=== PATIENT | female | born 1960 | race Caucasian/White ===

== ENCOUNTER 2016-03-30 21:53 | Inpatient (IN) | payer MEDICARE, MEDICAID ==
[~2016-03-30] VITALS: Ht 152.4 cm; Wt 52.1 kg
[~2016-03-30 21:53] MED LIST: CALC500T49 PO; COLA100C PO; CYMB60CA3 PO; FE T325T PO; HYDR25T PO; LORA10TA2 PO; MONT10TA2 PO; NICO21DI26 EXT; OMEP40CA2 PO; PAXI20TA3 PO; PRIL40CA PO; THIA100T PO
[2016-03-30 22:36] LABS: MEAN CORPUSCULAR VOLUME 99.9 fl (80.0-96.0); WHITE BLOOD COUNT 4.2 K/mm3 (4.0-10.0)
[2016-03-30 22:40] LABS: CONTROL LINE HCG INT CTR LINE PRESENT
[2016-03-30 22:51] LABS: AMPHETAMINES LEVEL URINE NEGATIVE (NEGATIVE); BENZODIAZEPINES URINE NEGATIVE (NEGATIVE); COCAINE METABOLITE URINE NEGATIVE (NEGATIVE); CONTROL LINE INT CTR LINE PRESENT; METHADONE URINE NEGATIVE (NEGATIVE); OPIATES URINE NEGATIVE (NEGATIVE); TRICYCLIC ANTIDEPRESS URINE NEGATIVE (NEGATIVE)
[2016-03-30 22:54] LABS: ALBUMIN 3.2 GM/DL (3.2-5.2); ALBUMIN/GLOBULIN RATIO 0.89 (1.00-1.93); ALKALINE PHOSPHATASE 126 U/L (45-117); ALT/SGPT 26 U/L (12-78); ANION GAP 9 MEQ/L (8-16); AST/SGOT 38 U/L (15-37); BILIRUBIN,DIRECT < 0.1 MG/DL (0.0-0.2); BILIRUBIN,TOTAL 0.3 MG/DL (0.2-1.0); BLOOD UREA NITROGEN 4 MG/DL (7-18); CALCIUM LEVEL 7.9 MG/DL (8.5-10.1); CARBON DIOXIDE LEVEL 30 MEQ/L (21-32); CHLORIDE LEVEL 110 MEQ/L (98-107); CREATININE FOR GFR 0.57 MG/DL (0.55-1.02); GLOMERULAR FILTRATION RATE > 60.0 (>51); GLUCOSE, FASTING 106 MG/DL (70-105); POTASSIUM SERUM 3.9 MEQ/L (3.5-5.1); SODIUM LEVEL 149 MEQ/L (136-145); TOTAL PROTEIN 6.8 GM/DL (6.4-8.2)
[2016-03-30] MEDS ORDERED: NICOTINE 21MG/24HR 1 EA TRANSDERMAL As Ordered ONE (23:02)
[2016-03-31] MEDS ORDERED: OXAZEPAM 15 MG CAP As Ordered ONE ×2 (02:34→11:03)
[2016-03-31] MEDS ORDERED: GI COCKTAIL 50ML BTL(HYOSCYAMINE/MAALOX/LIDOCAINE VISCOUS)(1:3:1) As Ordered ONE (02:34)
[2016-03-31] MEDS ORDERED: hydrOXYzine 25 MG TAB As Ordered ONE (12:34)
[2016-03-31] MEDS ORDERED: SUCR1SS PO (13:00)
[2016-03-31] MEDS ORDERED: VITMTA PO (13:00)
[2016-03-31] MEDS ORDERED: DRIS50002 PO (13:00)
[2016-03-31] MEDS ORDERED: TYLE1TAB5 PO (13:00)
[2016-03-31] MEDS ORDERED: OMEP40CA2 PO (13:00)
[2016-03-31] MEDS ORDERED: HYDR25T PO (13:00)
[2016-03-31] MEDS ORDERED: DULO1CAP3 PO (13:00)
[2016-03-31] MEDS ORDERED: FERR325T PO (13:00)
--- NOTE | 2016-03-31 15:02 | EDDOCDS ---
Physician Documentation [facility] Name: Amee Newman Age: 55 yrs Sex: Female : 1960 Arrival Date: 03/30/2016 Time: 21:53 Bed OBSERVATION Private MD: Disposition: 03/31/16 11:55 Hospitalization ordered by Aki Worthington for Inpatient Admission. Preliminary diagnosis are Suicidal ideations, Alcohol abuse counseling and surveillance, Alcohol abuse, Alcohol abuse with intoxication, uncomplicated. - Bed requested for Admit. - Status is Inpatient Admission. jc4 - Condition is Stable. - Problem is new. - Symptoms are unchanged. Historical: - Allergies: no known allergies; - Home Meds: 1. omeprazole 40 mg oral cpDR 1 cap 2 times per day (Last dose: 03/30/2016 09:00) 2. duloxetine 60 mg Oral cpDR 1 cap once daily (Last dose: 03/30/2016 09:00) 3. hydroxyzine HCl 25 mg Oral tab 1 tab 4 times per day as needed (Last dose: 03/29/2016) 4. Carafate 100 mg/mL Oral susp 10 mL 4 times per day (Last dose: 03/30/2016 19:00) 5. ferrous sulfate 325 mg (65 mg iron) Oral tab 325 mg twice a day (Last dose: Unknown) 6. Vitamin D Oral 50,000 unit monthly (Last dose: 02/2016) - PMHx: Depression; - PSHx: Gastric Bypass; Cholecystectomy; Adenoidectomy; Tonsillectomy; left knee surgery; - Social history: Smoking status: Patient uses tobacco products, current every day smoker. Patient uses alcohol on a daily basis. Patient/guardian denies using street drugs, No barriers to communication noted, The patient speaks fluent Bulgarian, Speaks appropriately for age. - Family history: Not pertinent. - : The pt / caregiver states he / she is not on anticoagulants. Home medication list is obtained from the patient, Note Medications verified by [employer] external history and confirmed by patient. 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 11 in. (149.86 cm); 03/31 02:17 BP 155 / 90; Pulse 89; Resp 20; Pulse Ox 99% ; Pain 9/10; mas 05:07 BP 125 / 78; Pulse 85; Resp 16; Temp 95.8(T); Pulse Ox 96% on R/A; Pain 0/10; slm 11:00 BP 151 / 108; Pulse 108; Resp 20; Temp 99.5(TE); Pulse Ox 98% on R/A; Pain 0/10; jc4 12:23 BP 165 / 94; Pulse 104; Resp 20; Pulse Ox 98% on R/A; jc4 14:58 BP 161 / 98; Pulse 101; Resp 17; Temp 99(TE); Pulse Ox 97% on R/A; pjf 03/30 22:00 Body Mass Index 23.63 (53.07 kg, 149.86 cm) mas MDM: 03/30 22:29 Consult PFS/PSA/Train Engineer ordered. ke 22:29 Consult PFS/PSA/Train Engineer: Patient's case requires discussion with on-call Psychiatrist ordered. 22:29 PSA/PFS to call Nursing Change Control Specialist, to enter patient data on [place] Safe Act if patient ke involuntarily admitted or transferred for SI or HI ordered. 22:29 Confirm accurate psychiatric medication list and times of last dosage ordered. ke 22:29 Detain Pt Until Medically/PFS Cleared ordered. ke 22:30 Acetaminophen Level Ordered. EDMS 22:30 Basic Metabolic Profile Ordered. EDMS 22:30 Complete Blood Count Ordered. EDMS 22:30 Drug Eval Toxicology ED Only Ordered. EDMS 22:30 Ethyl Alcohol (ethanol) Ordered. EDMS 22:30 HCG,Serum Qualitative Ordered. EDMS 22:30 Liver Profile Ordered. EDMS 22:30 Salicylate Level Ordered. EDMS 22:30 Thyroid Stimulating Hormone Ordered. EDMS 22:41 Nicotine Patch 21 mg/24 hr 1 applic Transdermal once ordered. ke 23:03 Acetaminophen Level Reviewed. ke 23:03 Basic Metabolic Profile Reviewed. ke 23:03 Complete Blood Count Reviewed. ke 23:03 Ethyl Alcohol (ethanol) Reviewed. ke 23:03 Liver Profile Reviewed. ke 23:03 Salicylate Level Reviewed. ke 23:03 Drug Eval Toxicology ED Only Reviewed. ke 23:03 HCG,Serum Qualitative Reviewed. ke 23:03 Thyroid Stimulating Hormone Reviewed. ke 23:09 [place] Safe Act reporting: The patient poses a significant risk to self or others, and ke PSA/PFS has notified the Nursing Change Control Specialist and he/she will complete the required gps field data collector. and the care was then provided by Initial Observation Assessment: The working diagnosis being considered, that nessecitates further evaluation and/or treatrment, includes etoh intoxication with suicidal ideation. 03/31 02:27 GI Cocktail - (Alum-Mag Hydroxide-Simeth 30 ml, Lidocaine 10 ml, Hyoscyamine 10 ml) PO mm11 once; Pre-mixed 50mL unit dose ordered. 02:30 Oxazepam 30 mg PO once ordered. mm11 04:26 REGULAR DIET PLASTIC WYATT+DIET ordered. EDMS 08:44 Financial registration complete. gb 09:44 [facility] Payment Agreement was scanned into [employer] and attached to record. gb 10:33 Consult PFS/PSA/Train Engineer complete. rb 11:03 Oxazepam 30 mg PO once ordered. jc4 11:08 REGULAR DIET PLASTIC WYATT+DIET ordered. EDMS 12:34 hydrOXYzine 25 mg PO once ordered. jc4 14:07 Admit to [facility]: ordered. EDMS 14:12 [facility] Legal paperwork was scanned into [employer] and attached to record. ml4 Administered Medications: 03/30 23:08 Drug: Nicotine 1 applic [nicotine 21 mg/24 hr daily transdermal patch (1 patches)] [facility] Route: Transdermal; Site: left upper arm; 03/31 02:37 Drug: GI Cocktail - (Alum-Mag Hydroxide-Simeth Suspension 225 mg-200 mg-25 mg/5 mL 30 slm ml, Lidocaine Liquid 2 % 10 ml, Hyoscyamine Liquid 10 ml) Route: PO; 03:51 Follow up: Response: Nausea is decreased [facility] 02:37 Drug: Oxazepam 30 mg [oxazepam 15 mg capsule (2 caps)] Route: PO; [facility] 03:51 Follow up: Response: Anxiety is improved [facility] 11:07 Drug: Oxazepam 30 mg [oxazepam 15 mg capsule (2 caps)] Route: PO; jc4 12:23 Follow up: BP 165 / 94; Pulse 104 bpm; Resp 20 bpm; Pulse Ox 98% RA jc4 12:39 Drug: hydrOXYzine 25 mg [hydroxyzine HCl 25 mg tablet (1 tabs)] Route: PO; jc4 Signatures: Dispatcher [employer] EDMS Karissa Whitt MD MD ml Gabe, Marine, PSA PSA rb Kristal Uriostegui, Reg Reg gb Kyle Benitez, SERVICE MEMBER SERVICE MEMBER Dede Cook, PSA PSA ml4 Tony Cramer, DO mm11 Cyndie Telles RN RN jc4 Vandana Valerio RN RN ttb Bridget Bailey LPN [facility] The chart was reviewed and I authenticate all verbal orders and agree with the evaluation and treatment provided.Corrections: (The following items were deleted from the chart) :39 03/30 22:21 Home Meds: Omeprazole Oral once daily; b jc4 03/31 09:39 03/30 22:21 Home Meds: "depression meds" daily; [facility] jc4 : 03/31 09:44 [facility] Payment Agreement gb MTDD
--- NOTE | 2016-03-31 15:02 | EDDOCDS ---
Nurse's Notes [facility] Name: Amee Newman Age: 55 yrs Sex: Female : 1960 Arrival Date: 03/30/2016 Time: 21:53 Bed OBSERVATION Private MD: Diagnosis: Suicidal ideations;Alcohol abuse counseling and surveillance;Alcohol abuse;Alcohol abuse with intoxication, uncomplicated Presentation: 03/30 22:00 Presenting complaint: law enforcement states called to residence by boyfriend for SI ttb ideation/attempts using scissors. Mental Health Triage Level: Level 2: The patient displays active suicidal ideations. The patient was brought to the ED for evaluation because of a legal pickup order. Adult Sepsis Screening: The patient does not have new or worsening altered mentation. Patient's respiratory rate is less than 22. Systolic blood pressure is greater than 100. Patient has a qSOFA score of 0- Negative Sepsis Screen. 22:00 Acuity: ASHISH Level 3 ttb 22:00 Mental Health Triage Level: Level 2: The patient displays active suicidal ideations. ttb The patient was brought to the ED for evaluation because of a legal pickup order. Suicide/Homicide risk assessment- The patient admits to and/or has been reported to be having suicidal ideations. The patient reports that he/she has a recent or current history of substance abuse. Status: Patient is not a community service representative or dependent. Transition of care: patient was not received from another setting of care. 22:00 Method Of Arrival: Police Car ttb Triage Assessment: 22:21 Pain: Denies pain. HIV screening NA for this visit Offered previously. Neurological: ttb Level of Consciousness is awake, alert. Cardiovascular: Chest pain is denied. Respiratory: No deficits noted. Airway is patent Respiratory effort is even, unlabored, Denies cough, shortness of breath. GI: Denies nausea, vomiting, pain. Derm: Skin is normal. 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 omeprazole 40 mg oral cpDR 1 cap 2 times per day (Last dose: 03/30/2016 09:00) 2. duloxetine 60 mg Oral cpDR 1 cap once daily (Last dose: 03/30/2016 09:00) 3. hydroxyzine HCl 25 mg Oral tab 1 tab 4 times per day as needed (Last dose: 03/29/2016) 4. Carafate 100 mg/mL Oral susp 10 mL 4 times per day (Last dose: 03/30/2016 19:00) 5. ferrous sulfate 325 mg (65 mg iron) Oral tab 325 mg twice a day (Last dose: Unknown) 6. Vitamin D Oral 50,000 unit monthly (Last dose: 02/2016) - PMHx: Depression; - PSHx: Gastric Bypass; Cholecystectomy; Adenoidectomy; Tonsillectomy; left knee surgery; - Social history: Smoking status: Patient uses tobacco products, current every day smoker. Patient uses alcohol on a daily basis. Patient/guardian denies using street drugs, No barriers to communication noted, The patient speaks fluent Ukrainian, Speaks appropriately for age. - Family history: Not pertinent. - : The pt / caregiver states he / she is not on anticoagulants. Home medication list is obtained from the patient, Note Medications verified by [employer] external history and confirmed by patient. 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 Screenin:40 Screening information is obtained from the patient. Fall risk: At risk due to apparent jc4 chemical impairment, The following interventions are performed due to a positive Fall Risk Screen: Fall Risk is added to Special Handling on the patient Summary Screen. A Fall Risk Bracelet was applied to the patient. Side Rails are placed in the up position. A Call Small is given with instruction to call for help when getting out of bed. Assistance ADL's: requires no assistance with activities of daily living. Abuse/DV Screen: The patient / caregiver reports he/she is: not in a situation that causes fear, pain or injury. Nutritional screening: No deficits noted. Advance Directives: Currently, there is a health care proxy, Agustina Vazquez, daughter. There is no active DNR order. There is no living will. There is no Power of Drying Can Worker. home support is adequate. Assessment: 03/30 22:12 General: Appears in no apparent distress, Behavior is cooperative, Smells of alcohol. slm Neurological: Level of Consciousness is awake, alert, obeys commands. Respiratory: Airway is patent Respiratory effort is even, unlabored. Derm: Skin is pink, warm & dry. 23:10 General: Appears in no apparent distress, comfortable, Behavior is cooperative. slm General: pt ambulated to bathroom with steady gait security observing . Pain: Denies pain. Respiratory: Airway is patent Respiratory pattern is regular. 03/31 00:12 General: Appears in no apparent distress, comfortable, to be sleeping. Behavior is slm quiet. General: pr asleep on stretcher security observing . Respiratory: Airway is patent Respiratory effort is even, unlabored. 01:22 General: Appears in no apparent distress, comfortable, to be sleeping. Behavior is slm quiet. General: security observing . Respiratory: Airway is patent Respiratory effort is even, unlabored. Derm: Skin is pink, warm & dry. 02:37 General: Appears in no apparent distress, Behavior is anxious, cooperative, crying. slm General: pt crying appears anxious upset at this time meds given will cont to monitor . Neurological: Level of Consciousness is awake, alert, obeys commands. Respiratory: Airway is patent Respiratory effort is even, unlabored. 03:50 General: Appears in no apparent distress, comfortable, to be sleeping. Behavior is slm quiet. General: pt asleep at this time no distress noted will cont to monitor security observing . Respiratory: Airway is patent Respiratory effort is even, unlabored. Derm: Skin is pink, warm & dry. 04:40 Reassessment: Patient appears in no apparent distress at this time. Patient states slm symptoms have improved. General: Appears in no apparent distress, comfortable, to be sleeping. Behavior is quiet. General: pt asleep on stretcher security observing . Respiratory: Airway is patent Respiratory effort is even, unlabored, Respiratory pattern is regular. Derm: Skin is pink, warm & dry. 05:58 General: Appears in no apparent distress, comfortable, to be sleeping. Behavior is slm quiet. General: pt resting on stretcher security observing . Respiratory: Airway is patent Respiratory effort is even, unlabored, Respiratory pattern is regular. Derm: Skin is pink, warm & dry. 06:47 General: Appears in no apparent distress, comfortable, Behavior is cooperative, quiet. slm General: pt resting on stretcher denies needs security observing . Pain: Denies pain. Neurological: Level of Consciousness is alert, obeys commands. Respiratory: Airway is patent Respiratory effort is even, unlabored. Derm: Skin is pink, warm & dry. 07:47 General: Appears in no apparent distress, Behavior is anxious, cooperative. pml Neurological: Level of Consciousness is awake, alert, Oriented to person, place, time. Cardiovascular: Capillary refill < 3 seconds. Respiratory: Airway is patent Respiratory effort is even, unlabored. Derm: Skin is pink, warm & dry. 09:20 General: Orin Bernal, PSA in to speak with patient at this time. jc4 09:41 General: Appears in no apparent distress, comfortable, Behavior is cooperative. jc4 General: Yolande antonio given per patient request. Pt remains under security observation at this time. Neurological: Level of Consciousness is awake, alert, Oriented to person, place, time. Respiratory: Airway is patent Respiratory effort is even, unlabored, Respiratory pattern is regular, symmetrical. Derm: Skin is pink, warm & dry. 10:50 General: Appears Pt sitting up on stretcher, tearful. Requesting phone to call home. Pt jc4 asking, "am I going to stay? I don't want to stay". Pt's hands noted to be tremulous. VS obtained. Dr. Dhaliwal updated on patient condition and orders received. Pt remains under security observation at this time. Additional yolande antonio given per request. 11:34 General: Pt sitting on stretcher. Appears calm. Speaking with family members. jc4 12:23 General: Pt sitting up on stretcher. Speaking with family members at bedside. States jc4 vomited x 1 approximately 30 minutes ago, "I drank my yolande antonio too fast". Hands remain mildly tremulous. Denies any nausea currently. Security observation continuing. 13:09 General: Lunch tray given. Pt denies any complaint at this time. Security observation jc4 continuing. 14:40 General: Pt lying on stretcher. Appears in no distress at this time. Security continues jc4 to observe patient. 14:57 General: Appears in no apparent distress, Behavior is cooperative. Neurological: Level jc4 of Consciousness is awake, alert, Oriented to person, place, time. Respiratory: Airway is patent Respiratory effort is even, unlabored, Respiratory pattern is regular, symmetrical. Derm: Skin is pink, warm & dry. Mental Health Eval: 03/30 22:00 Referral Information: Evaluation referral is generated by a police agency: Dianna whyte on .. The patient was referred for evaluation because Pt drinking tonight, possible drug use as well, expressed SI to her S.O. who called 911. Pt reportedly had scissors taken away by S.O. as well. Pt has prior psych hx with 2 prior psych admissions to [facility].. 03/31 10:37 Mental health consult is initiated at 09:05. Status: The patient is not a rb community service representative or dependent. [facility] Behavioral Health: The patient is not an established patient of [facility] Behavioral Health. Referral Information: The patient was referred for evaluation because Pt presented to ED +ETOH (CESAR .409), stating +SI. Pt is now sober and continues to state SI, teary, reported increased anxiety, and depressed. Pt stated "Told him (BF) I wanted to kill myself". "Very Depressed". Pt reported stressors as; Youngest Dgt living in [place], Son just moved to [place], on 10/03 quit her job ("and loved it, was really stressful, wished I hadn't"), worked on the [employer] floor \\[facility]. Additional stressors are; CPS removed 2 children from the home of Another Dgt living in [place]. Pt's mother has custody and Pt is not allowed to be around them because" I'm a drunk". "I just feel like a loser". "I also went through a bad divorce 13 years ago. I never got over". Pt reported had to have all her teeth pulled a year ago. Had trouble with insurance so was not able to get them replaced. Pt stated Embarrassed to go anywhere or talk to anyone. . Subjective: The patients chief complaint is Depressed, increased anxiety, +SI no plan. . Delusions are denied. Patient's mood is anxious, dysphoric, hopeless, Hallucinations are denied. Mental Health history: alcohol abuse, anxiety, depression, suicide ideation twice; 6 yrs ago and 13 years ago. Mental Health Admissions: [facility], 6 years ago for +SI, and , 13 yrs ago for +SI. Current Outpatient Mental Health Services: Completed Rehab \\[facility], 5yrs ago. Attended and [facility] ([place]) in the past. Pt reported was sober for 2 years. . Current living environment is The patient currently lives with his / her significant other, of 13 years.. Patient presents to Emergency Department with the following symptoms within the past 2 weeks: alcohol abuse, anxiety, depressed mood, feelings of helplessness/hopelessness, poor impulse control, suicidal ideation with no plan. Substance abuse: Patient uses beer, of LOCOS 4 LOCOS and Beer + daily. Mental status exam: Patients appearance is disheveled Patient's behavior is cooperative, crying. Speech is normal. Affect is flat. Mood is anxious. dysphoric. Hallucinations are denied. Appetite is poor. Memory is good. Energy level is lethargic. Content of thought is depressive. "I just don't want to be here". Thought process is characterized by flight of ideas. Cognitive level is oriented to person, place, time and situation Patient's insight is poor. Judgement is poor. Rapport with interviewer is good. Suicidal Ideation is present with no specific plan. Homicidal ideation is not present. Disposition: Medically cleared for disposition by Karissa Whitt MD. 11:34 Disposition: Psychiatric Consult is performed by phone with Dr Aki Worthington. [facility] rb Admission Criteria: The patient is experiencing suicidal ideation. The patient displays symptoms of severe psychiatric disorder resulting in disordered behavior and significant interference with his / her ability to maintain self care. Severe Anxiety. The patient requires continuous observation and/or control to protect self, others or property. The patient's care requires a multi-modal treatment plan under close supervision and coordination due to the complexity and severity of the patient's symptoms. Legal Status: Patient's legal status will be Emergency admission: 39. [place] Safe Act: [place] Safe Act is applicable to this patient. The patient poses a risk to self or other and the Nursing Apartment Maintenance Manager has been notified. He/She will enter the patient's data. Pt states preferred pharmacy is: [facility] in [place]. 14:09 DSM-V Differential Diagnosis: Unspecified Depressive Disorder (F32.9). Insurance rb Pre-Certification: Not Required. Awaiting: transfer to [facility]. Vital Signs: 03/30 22:00 BP 132 / 89; Pulse 104; Resp 20; Temp 96.2(T); Pulse Ox 96% ; Weight 53.07 kg; Height 4 mas ft. 11 in. (149.86 cm); 03/31 02:17 BP 155 / 90; Pulse 89; Resp 20; Pulse Ox 99% ; Pain 9/10; mas 05:07 BP 125 / 78; Pulse 85; Resp 16; Temp 95.8(T); Pulse Ox 96% on R/A; Pain 0/10; slm 11:00 BP 151 / 108; Pulse 108; Resp 20; Temp 99.5(TE); Pulse Ox 98% on R/A; Pain 0/10; jc4 12:23 BP 165 / 94; Pulse 104; Resp 20; Pulse Ox 98% on R/A; jc4 14:58 BP 161 / 98; Pulse 101; Resp 17; Temp 99(TE); Pulse Ox 97% on R/A; pjf 02 22:00 Body Mass Index 23.63 (53.07 kg, 149.86 cm) [facility] Vitals: 03/30 22:21 Log In time N/A- police car arrival. ttb ED Course: 21:55 Patient visited by Darcy Franco. gjb 21:55 Patient moved to Waiting gjb 22:00 Patient visited by Ji Todd. mas 22:00 Patient moved to [address] 22:04 Pt greeted and oriented to ED. Patient advised of names of staff involved in care, [facility] location of call small, wait times and NPO status. Accompanied by Law Enforcement, DULCE on , Patient has correct armband on for positive identification. Placed in psych safe attire. Bed in low position. Call light in reach. Side rails up X 1. Security observing. Property removed, inventory done, secured in belongings bag- Placed in locker 3. Door closed. Noise minimized. Moved to private room. Verbal reassurance given. Warm blanket given. Pillow given. Psych Safety Check: Location: Psych Room. Visual Assessment: cooperative \\T\\ this time. 22:12 Bridget Bailey LPN is Primary Nurse. slm 22:12 Labs drawn. (by ED staff). Sent per order to lab. Urine collected. Urine specimen sent sl to lab. 22:13 Patient visited by Bridget Bailey LPN. slm 22:15 Patient visited by Ji Todd. [facility] 22:20 Triage Initiated ttb 22:29 [facility] Benitez FNP [facility]. ke 22:29 Patient visited by Kyle Benitez FNP. ke 22:29 Patient visited by Kyle Benitez FNP. ke 22:31 Patient visited by Ji Todd. mas 22:45 Patient visited by Ji Todd. mas 23:02 Patient visited by Ji Todd. mas 23:11 Patient moved to OBSERVATION ke 23:15 Patient visited by Ji Todd. mas 23:30 Patient visited by Ji Todd. mas 23:45 Patient visited by Ji Todd. mas 23:47 Tony Cramer DO is Attending Physician. mm11 03/31 00:00 Patient visited by Ji Todd. mas 00:15 Patient visited by Ji Todd. mas 00:30 Patient visited by Ji Todd. mas 00:46 Patient visited by Ji Todd. mas 01:00 Patient visited by Ji Todd. mas 01:15 Patient visited by Ji Todd. mas 01:22 Patient visited by Bridget Bailey LPN. slm 01:30 Patient visited by Ji Todd. mas 01:46 Patient visited by Ji Todd. mas 02:00 Patient visited by Ji Todd. mas 02:16 Patient visited by Ji Todd. mas 02:30 Patient visited by Ji Todd. mas 02:38 Patient visited by Bridget Bailey LPN. slm 02:45 Patient visited by Ji Todd. mas 03:00 Patient visited by Ji Todd. mas 03:30 Patient visited by Ji Todd. mas 03:45 Patient visited by Ji Todd. mas 04:01 Patient visited by Ji Todd. mas 04:15 Patient visited by Ji Todd. mas 04:31 Patient visited by Ji Todd. mas 04:45 Patient visited by Ji Todd. mas 05:00 Patient visited by Ji Todd. mas 05:09 Patient visited by Bridget Bailey LPN. slm 05:09 The patient / caregiver is instructed regarding the plan of care and ED course. slm 05:09 No IV's were initiated during this patient's visit. No procedures done that require slm assistance. 05:15 Patient visited by Ji Todd. mas 05:30 Patient visited by Ji Todd. mas 05:45 Patient visited by Ji Todd. mas 06:00 Patient visited by Ji Todd. mas 06:15 Patient visited by Ji Todd. mas 06:30 Patient visited by Ji Todd. mas 06:45 Patient visited by Ji Todd. mas 06:48 Patient visited by Bridget Bailey LPN. slm 06:57 Attending Physician role handed off by Tony Cramer DO ml 06:57 Karissa Whitt MD is Attending Physician. ml 07:00 Patient visited by Ji Todd. mas 07:06 Patient visited by John Feliciano Security Aide. pjf 07:29 Patient visited by John Feliciano Security Aide. pjf 07:45 Patient visited by John Feliciano Security Aide. pjf 08:03 Patient visited by John Feliciano Security Aide. pjf 08:19 Patient visited by John Feliciano Security Aide. pjf 08:27 Patient visited by John Feliciano Security Aide. pjf 08:28 Patient visited by Windy Vega,MELISA. pml 08:54 Patient visited by John Feliciano Security Aide. pjf 09:01 Cyndie Telles, MELISA is Primary Nurse. jc4 09:02 Patient visited by John Feliciano Security Aide. pjf 09:34 Patient visited by John Feliciano Security Aide. pjf 09:37 Patient name changed from Amee\\S\\\\S\\Hirschy\\S\\ to Amee\\S\\ \\S\\Hirschy. EDMS 09:44 [facility] Payment Agreement was scanned into [employer] and attached to record. gb 09:45 Psych Safety Check: Location: Psych Room. Visual Assessment: Cooperative. pjf 10:01 Patient visited by John Feliciano Security Aide. pjf 10:15 Patient visited by John Feliciano Security Aide. pjf 10:43 Patient visited by John Feliciano Security Aide. pjf 10:57 Patient visited by John Feliciano Security Aide. pjf 11:15 Psych Safety Check: Location: Psych Room. Visual Assessment: Cooperative. pjf 11:30 Psych Safety Check: Location: Psych Room. Visual Assessment: Cooperative. pjf 11:45 Patient visited by John Feliciano Security Aide. pjf 11:55 Aki Worthington is Hospitalizing Provider. ml 11:58 Patient visited by John Feliciano Security Aide. pjf 12:18 Patient visited by John Feliciano Security Aide. pjf 12:34 Patient visited by John Feliciano Security Aide. pjf 12:45 Patient visited by John Feliciano Security Aide. pjf 14:12 E Legal paperwork was scanned into [employer] and attached to record. ml4 Administered Medications: 03/30 23:08 Drug: Nicotine 1 applic [nicotine 21 mg/24 hr daily transdermal patch (1 patches)] sl Route: Transdermal; Site: left upper arm; 03/31 02:37 Drug: GI Cocktail - (Alum-Mag Hydroxide-Simeth Suspension 225 mg-200 mg-25 mg/5 mL 30 slm ml, Lidocaine Liquid 2 % 10 ml, Hyoscyamine Liquid 10 ml) Route: PO; 03:51 Follow up: Response: Nausea is decreased [facility] 02:37 Drug: Oxazepam 30 mg [oxazepam 15 mg capsule (2 caps)] Route: PO; [facility] 03:51 Follow up: Response: Anxiety is improved [facility] 11:07 Drug: Oxazepam 30 mg [oxazepam 15 mg capsule (2 caps)] Route: PO; jc4 12:23 Follow up: BP 165 / 94; Pulse 104 bpm; Resp 20 bpm; Pulse Ox 98% RA jc4 12:39 Drug: hydrOXYzine 25 mg [hydroxyzine HCl 25 mg tablet (1 tabs)] Route: PO; jc4 Attachments: 14:12 E Legal paperwork ml4 Order Results: Lab Order: Acetaminophen Level; SPEC'M 03/30/16 22:02 Test: ACETAMINOPHEN LEVEL; Value: < 2.0; Range: 10.0-30.0; Abnormal: Below low normal; Units: UG/ML; Status: F Lab Order: Basic Metabolic Profile; SPEC'M 03/30/16 22:02 Test: GLUCOSE, FASTING; Value: 106; Range: 70-105; Abnormal: Above high normal; Units: MG/DL; Status: F Test: BLOOD UREA NITROGEN; Value: 4; Range: 7-18; Abnormal: Below low normal; Units: MG/DL; Status: F Test: CREATININE FOR GFR; Value: 0.57; Range: 0.55-1.02; Units: MG/DL; Status: F Test: SODIUM LEVEL; Range: 136-145; Units: MEQ/L; Status: I Test: POTASSIUM SERUM; Range: 3.5-5.1; Units: MEQ/L; Status: I Test: CHLORIDE LEVEL; Range: 98-107; Units: MEQ/L; Status: I Test: CARBON DIOXIDE LEVEL; Range: 21-32; Units: MEQ/L; Status: I Test: ANION GAP; Range: 8-16; Units: MEQ/L; Status: I Test: CALCIUM LEVEL; Range: 8.5-10.1; Units: MG/DL; Status: I Test: GLOMERULAR FILTRATION RATE; Value: > 60.0; Range: >51; Status: F Test: SODIUM LEVEL; Value: 149; Range: 136-145; Abnormal: Above high normal; Units: MEQ/L; Status: F Test: POTASSIUM SERUM; Value: 3.9; Range: 3.5-5.1; Units: MEQ/L; Status: F Test: CHLORIDE LEVEL; Value: 110; Range: 98-107; Abnormal: Above high normal; Units: MEQ/L; Status: F Test: CARBON DIOXIDE LEVEL; Value: 30; Range: 21-32; Units: MEQ/L; Status: F Test: ANION GAP; Value: 9; Range: 8-16; Units: MEQ/L; Status: F Test: CALCIUM LEVEL; Value: 7.9; Range: 8.5-10.1; Abnormal: Below low normal; Units: MG/DL; Status: F Test Note: ; Units are mL/min/1.73 m2 Chronic Kidney Disease Staging per NKF: Stage I & II GFR >=60 Normal to Mildly Decreased Stage III GFR 30-59 Moderately Decreased Stage IV GFR 15-29 Severely Decreased Stage V GFR <15 Very Little GFR Left ESRD GFR <15 on [employer]TER Lab Order: Complete Blood Count; [facility] 03/30/16 22:02 Test: WHITE BLOOD COUNT; Value: 4.2; Range: 4.0-10.0; Units: K/mm3; Status: F Test: RED BLOOD COUNT; Value: 4.84; Range: 4.00-5.40; Units: M/mm3; Status: F Test: HEMOGLOBIN; Value: 15.5; Range: 12.0-16.0; Units: g/dl; Status: F Test: HEMATOCRIT; Value: 48.4; Range: 36.0-47.0; Abnormal: Above high normal; Units: %; Status: F Test: MEAN CORPUSCULAR VOLUME; Value: 99.9; Range: 80.0-96.0; Abnormal: Above high normal; Units: fl; Status: F Test: MEAN CORPUSCULAR HEMOGLOBIN; Value: 32.0; Range: 27.0-33.0; Units: pg; Status: F Test: MEAN CORPUSCULAR HGB CONC; Value: 32.0; Range: 32.0-36.5; Units: g/dl; Status: F Test: RED CELL DISTRIBUTION WIDTH; Value: 14.0; Range: 11.5-14.5; Units: %; Status: F Test: PLATELET COUNT, AUTOMATED; Value: 257; Range: 150-450; Units: k/mm3; Status: F Lab Order: Drug Eval Toxicology ED Only; SPEC'M 03/30/16 22:02 Test: AMPHETAMINES LEVEL URINE; Value: NEGATIVE; Range: NEGATIVE; Status: F Test: BARBITURATES URINE; Value: NEGATIVE; Range: NEGATIVE; Status: F Test: BENZODIAZEPINES URINE; Value: NEGATIVE; Range: NEGATIVE; Status: F Test: CANNABINOIDS URINE; Value: NEGATIVE; Range: NEGATIVE; Status: F Test: COCAINE METABOLITE URINE; Value: NEGATIVE; Range: NEGATIVE; Status: F Test: METHADONE URINE; Value: NEGATIVE; Range: NEGATIVE; Status: F Test: OPIATES URINE; Value: NEGATIVE; Range: NEGATIVE; Status: F Test: TRICYCLIC ANTIDEPRESS URINE; Value: NEGATIVE; Range: NEGATIVE; Status: F Test Note: ; ALL PRESUMPTIVE POSITIVE FINDINGS ARE UNCONFIRMED NORMAL VALUES THRESHOLD IN NG/ML AMPHETAMINES 1000 METHAMPHETAMINES 1000 BARBITURATES 300 BENZODIAZEPINES 300 CANNABINOIDS (THC) 50 COCAINE METABOLITE 300 METHADONE 300 OPIATES 300 PHENCYCLIDINE 25 TRICYCLIC ANTIDEPRESSANTS 1000 RESULTS ARE FOR MEDICAL PURPOSES ONLY. ALL URINE SPECIMENS WILL BE SAVED FOR 3 DAYS. IF CONFIRMATION OF A PRESUMPTIVE POSTIVE SCREEN RESULT IS DESIRED, CALL CHEMISTRY ([phone]) AND REQUEST URINE TO BE SENT TO REFERENCE LAB. FOR A LIST OF CLOSELY RELATED COMPOUNDS PLEASE CALL THE LAB. Lab Order: Ethyl Alcohol (ethanol); SPEC' 03/30/16 22:02 Test: ETHYL ALCOHOL (ETHANOL); Value: 0.409; Range: 0.000-0.010; Abnormal: Above high normal; Units: %; Status: F Lab Order: HCG,Serum Qualitative; SPEC'M 03/30/16 22:02 Test: HCG, SERUM QUALITATIVE; Value: NEGATIVE; Range: NEGATIVE; Status: F Lab Order: Liver Profile; 03/30/16 22:02 Test: AST/SGOT; Value: 38; Range: 15-37; Abnormal: Above high normal; Units: U/L; Status: F Test: ALT/SGPT; Value: 26; Range: 12-78; Units: U/L; Status: F Test: ALKALINE PHOSPHATASE; Value: 126; Range: 45-117; Abnormal: Above high normal; Units: U/L; Status: F Test: BILIRUBIN,TOTAL; Value: 0.3; Range: 0.2-1.0; Units: MG/DL; Status: F Test: BILIRUBIN,DIRECT; Value: < 0.1; Range: 0.0-0.2; Units: MG/DL; Status: F Test: TOTAL PROTEIN; Value: 6.8; Range: 6.4-8.2; Units: GM/DL; Status: F Test: ALBUMIN; Value: 3.2; Range: 3.2-5.2; Units: GM/DL; Status: F Test: ALBUMIN/GLOBULIN RATIO; Value: 0.89; Range: 1.00-1.93; Abnormal: Below low normal; Status: F Lab Order: Salicylate Level; SPEC' 03/30/16 22:02 Test: SALICYLATE LEVEL; Value: 1.9; Range: 5.0-30.0; Abnormal: Below low normal; Units: MG/DL; Status: F Lab Order: Thyroid Stimulating Hormone; SPEC' 03/30/16 22:02 Test: THYROID STIMULATING HORMONE; Value: 0.998; Range: 0.358-3.740; Units: uIU/ML; Status: F Outcome: 05:09 No special radiology studies were completed. fred 11:55 Decision to Hospitalize by Provider. ml 14:59 Discharge Assessment: patient administered narcotics - no. The following High Risk [facility] Discharge criteria are identified: Yes, patient has been evaluated by PSA during this ED visit. Admitted to Psych accompanied by tech, via wheelchair, with chart. Condition: stable. 15:01 Patient left the ED. [facility] Signatures: Dispatcher [employer] EDMS Karissa Whitt MD MD ml Gabe, Marine, PSA PSA rb Kaden Hurt, PSA PSA cl Kristal Uriostegui, Reg Reg gb Braden, John, Security Aide [employer] Kyle Benitez, CONFIGURATION MANAGEMENT ADVISOR CONFIGURATION MANAGEMENT ADVISOR Dede Cook, PSA PSA ml4 Tony Cramer, DO mm11 Cyndie Telles RN RN jcJi Rosen Paulina,RN RN Vandana Stein RN RN ttb Bridget Bailey LPN LPN slm Beck, Gabriela gjb Corrections: (The following items were deleted from the chart) 09:39 03/30 22:21 Home Meds: Omeprazole Oral once daily; tt jc4 03/31 09:39 02 22:21 Home Meds: "depression meds" daily; [facility] jc MTDD
[2016-03-31 15:37] VITALS: BP 169/81
[2016-03-31 17:04] VITALS: BP 152/90
[2016-03-31] MEDS ORDERED: MOM 30ML SUSPENSION UDC PO PRN (18:15)
[2016-03-31] MEDS ORDERED: MAALOX 30 ML SUSP *UDC PO PRN (18:15)
[2016-03-31] MEDS ORDERED: diphenhydrAMINE 50 MG CAP PO PRN (18:30)
[2016-03-31] MEDS ORDERED: ACETAMINOPHEN 500 MG TAB PO PRN (18:30)
[2016-03-31] MEDS ORDERED: hydrOXYzine 25 MG TAB PO PRN (18:30)
[2016-03-31] MEDS: OXAZEPAM 15 MG CAP PO SCH (21:00)
[2016-03-31] MEDS: THIAMINE 100 MG TAB PO SCH (21:00)
[2016-03-31] MEDS: FERROUS SULFATE 325MG TAB PO SCH (21:01)
[2016-03-31] MEDS: SUCRALFATE SUSP 1GM/10ML UD PO SCH (21:01)
[2016-03-31] MEDS: NICOTINE 21MG/24HR 1 EA TRANSDERMAL TD SCH (21:01)
[2016-03-31] MEDS: OMEPRAZOLE 20 MG CAP PO SCH (21:01)
[2016-04-01] MEDS: OXAZEPAM 15 MG CAP PO SCH ×4 (06:12→23:01)
[2016-04-01 06:34] VITALS: BP 180/110
[2016-04-01] MEDS: SUCRALFATE SUSP 1GM/10ML UD PO SCH ×4 (06:40→21:31)
[2016-04-01 06:46] VITALS: BP 130/88
[2016-04-01 07:57] LABS: ALBUMIN 2.9 GM/DL (3.2-5.2); ALBUMIN/GLOBULIN RATIO 0.85 (1.00-1.93); ALKALINE PHOSPHATASE 149 U/L (45-117); ALT/SGPT 27 U/L (12-78); ANION GAP 5 MEQ/L (8-16); AST/SGOT 43 U/L (15-37); BILIRUBIN,TOTAL 1.2 MG/DL (0.2-1.0); BLOOD UREA NITROGEN 5 MG/DL (7-18); CALCIUM LEVEL 8.6 MG/DL (8.5-10.1); CARBON DIOXIDE LEVEL 34 MEQ/L (21-32); CHLORIDE LEVEL 106 MEQ/L (98-107); CREATININE FOR GFR 0.54 MG/DL (0.55-1.02); GLOMERULAR FILTRATION RATE > 60.0 (>51); GLUCOSE, FASTING 78 MG/DL (70-105); SODIUM LEVEL 145 MEQ/L (136-145); TOTAL PROTEIN 6.3 GM/DL (6.4-8.2)
[2016-04-01 09:00] VITALS: BP 140/98
[2016-04-01] MEDS: NICOTINE 21MG/24HR 1 EA TRANSDERMAL TD SCH (09:34)
[2016-04-01] MEDS: FERROUS SULFATE 325MG TAB PO SCH ×2 (09:35→21:32)
[2016-04-01] MEDS: THIAMINE 100 MG TAB PO SCH ×2 (09:35→21:33)
[2016-04-01] MEDS: DULoxetine 30 MG CAP (CYMBALTA) PO SCH (09:35)
[2016-04-01] MEDS: FOLIC ACID 1 MG TAB PO SCH (09:35)
[2016-04-01] MEDS: OMEPRAZOLE 20 MG CAP PO SCH ×2 (09:35→21:32)
[2016-04-01] MEDS: MULTIVITAMINS/MINERALS THERAP 1 TAB PO SCH (09:35)
[2016-04-01 11:34] VITALS: BP 140/100
[2016-04-01 14:54] VITALS: BP 126/85
[2016-04-01 18:00] VITALS: BP 130/88
--- NOTE | 2016-04-01 20:22 | MHHPE ---
DATE OF ADMISSION: 03/31/2016 CHIEF COMPLAINT: Feels depressed. SUBJECTIVE: She is 55 years old, she lives with her boyfriend, they have been together for about 13 years. The patient has had two prior hospitalizations here, was last here 2-1/2 years ago, seen by Dr. Glaser. Please refer to his discharge summary for details related to the admission and the hospital stay. She says subsequent to that, she had gone to [facility], attended rehabilitation, says she completed it, and then attended [facility] outpatient, says remained sober for about 2 years, felt an improvement in her mood, and that she was not as depressed, though depression remained a factor. She felt her sleep improved for the most part. Says she picked up alcohol again a few months ago, she says she was working and it was stressful, and she thought she could have "just one drink," but that gradually became regular, to the point where she was drinking heavily, daily, including eye openers, and apparently she and her boyfriend had an argument a couple of days ago, she is not sure of the nature of the argument, what it was about, and she expressed the wish to , says her boyfriend decided to call her mother, who suggested that the patient be brought to the hospital, police were called. She says she remembers being at home, drinking, and vaguely remembers being brought here. Has had blackouts in the past, continues to have them. Says feels depressed. Says has continued taking her duloxetine, which she has been on for a while, at 60 mg daily, she is also on hydroxyzine 25 mg four times a day as needed, says she tends to take all four tablets together at night, to help with her sleep. Says has felt hopeless, but denies that she has felt suicidal. PAST PSYCHIATRIC HISTORY: Please refer to previous summaries, has had two admissions in the past, over here, vague on whether she has attended outpatient psychiatry with any consistency. SURGICAL HISTORY: Has had gastric bypass, cholecystectomy, has had adenoids and tonsils removed, left knee surgery. SUBSTANCE ABUSE HISTORY: Long history of alcohol misuse, and says has attended inpatient rehabilitation, outpatient substance abuse treatment, and remained sober for 2 years or so, until she picked up alcohol again last year, a few months ago. SOCIAL HISTORY: Please refer to previous summaries, lives with her boyfriend, they have been together several years. Says she has four children, several grandchildren, says is in touch with them. LABORATORY VALUES: Chemistry essentially within normal limits except for creatinine at 0.54 which is slightly below normal, BUN is 5, AST is only slightly raised at 43, alkaline phosphatase is 149 (45-117), bilirubin 1.2 (0.2 - 1). These were all done earlier today. Complete blood count essentially within normal limits except for a slightly raised hematocrit at 48.4 (36-47) and MCV is 99.9 (80-96). VITAL SIGNS: Blood pressure 140/98, pulse 86, blood pressures have fluctuated, yesterday ranging from 169/81 to 152/90, pulse has consistently been over 100, and earlier today blood pressure 180/110 with a pulse of 133. These all possibly reflect withdrawal from alcohol. MENTAL STATUS EXAMINATION: She is neat. She is cooperative. No agitation. No psychomotor retardation. Affect is restricted, she is tearful at times. She displays no formal thought disorder. Answers questions logically, coherently. Denies any active suicidal thoughts or intents at present, though is somewhat vague on them at times, no firm plans. No evidence of any homicidal ideas or intents, nor of any psychosis. Does not appear internally preoccupied. No delusions elicited. She displays no difficulties in maintaining and shifting attention. She is alert. She is oriented to time, place, and person. She can spell the word "house" forwards but has difficulty spelling it backwards, has difficulty with a three digit span backwards. Short-term memory fair. Intellect is average. Judgment and insight are poor. ASSESSMENT: Unspecified depressive disorder. Alcohol use disorder. Alcohol withdrawal. Rule out major depressive disorder. Rule out alcohol induced mood disorder (depression). Continued struggles with alcohol. Significantly depressed, this is further exacerbated by regular use of alcohol, which has been quite heavy. It should be noted, her urine toxicology was essentially negative. Alcohol level was 0.409. It is unclear if she meets criteria for a major depressive episode when free of alcohol, further collaboration in terms of history may help clarify the diagnosis. It is likely, however, that she has significant mood difficulties in the absence of alcohol as well. PLAN: She is admitted to the inpatient psychiatry unit and placed on relevant precautions, including withdrawal precautions. We will monitor her for withdrawal, and depression, among other things. She will receive a medicine consult if indicated. She will be involved in individual, group, and milieu therapy. She is placed on Serax, initially at 30 mg three times a day, raised it today to four times a day, to help address alcohol withdrawal. We will continue with the Cymbalta at 60 mg daily, but I do not see much point in increasing it while she is drinking. There is potential room for an increase should the patient maintain herself free of alcohol, and that in itself gives a better picture. She will be discharged with followup once she is stable, and I would strongly suggest that she be referred to substance abuse treatment as well upon discharge , she may well require going to rehabilitation again. She is anticipated to stay here 5-7 days. She will be seen by the psychiatrist assigned to her for tomorrow. The assessment took 35 minutes. JIM
[2016-04-01] MEDS: traZODone 50 MG TAB PO PRN (21:33)
[2016-04-01] MEDS: ACETAMINOPHEN TAB 650MG DOSE (2X325MG) PO PRN (21:33)
[2016-04-02 06:18] VITALS: BP 121/75
[2016-04-02] MEDS: OXAZEPAM 15 MG CAP PO SCH ×3 (06:37→18:22)
[2016-04-02] MEDS: SUCRALFATE SUSP 1GM/10ML UD PO SCH ×4 (06:37→21:15)
--- NOTE | 2016-04-02 08:44 | IPNPDOC ---
[facility] Progress Note Progress Note DATE OF SERVICE: 04/02/16 SUBJECTIVE: ========= Patient is calm and cooperative on interview. She is engaged but reports no change in intensity of depression. Patient has increased sleep. Currently on Alcohol withdrawal monitoring protocol with Serax currently at 30mg po 6hr. Patient denies alcohol w/d symptoms. Patient amenable to a SATP(substance abuse treatment program). Patient reports her daughter losing custody of her kids to other family, increased medical, occupational, and financial stressors have all combined to increase her depression and alcohol use d/o symptoms. She denies thoughts of SI and HI today. Patient reports no medication side effects on his current psychotropic regimen. She denies WEBER, CP, ABD pain. She denies N/V /C/D. No bizarre or inappropriate statements or behaviors noted. Patient reports fair sleep and appetite. No behavioral issues on the unit. OBJECTIVE: ========= VITAL SIGNS: wnl. NEW TEST RESULTS: No new results. CURRENT MEDICATIONS: See below. MENTAL STATUS EXAMINATION: Patient is 55-year-old female, Patient presents with fair personal hygiene, is dressed in hospital clothing, makes good eye contact, steady gait, exhibits no psychomotor retardation or agitation today, appears stated age, engaged, calm and cooperative with interview. Speech: Is of normal rate, rhythm, volume, spontaneous, coherent Language skills are intact. Thought processes: Clear, goal-directed Thought content: Rational. Abstract reasoning, and computation: Appears intact Description of associations: Intact. Description of abnormal or psychotic thoughts: Patient denies hallucinations, delusions, preoccupation with violence, homicidal or suicidal ideation, and obsessions]. Judgment: poor Insight: poor Orientation to time, place and person. Recent and remote memory: Immediate, short-term and long-term memory is intact Attention span and concentration: Within normal limits. Language: Normal. Fund of knowledge: Adequate. Mood: depressed Affect: depressed ASSESSMENT: Unspecified depressive disorder. Alcohol use disorder. Alcohol withdrawal. Required alcohol withdrawal protocol and meds Rule out major depressive disorder. Rule out alcohol induced mood disorder (depression). PLAN: ===== -Continue alcohol w/d monitoring protocol. -Taper Serax from 30mg q6hr for alcohol w/d protocol to 15mg po q6hr, with plan to continue taper to off prior to d/c. -Continue current psychotropic regimen as written. Patient reporting benefit on current regimen. -Maintain safety precautions. -Patient to attend groups and participate in unit programming to develop coping strategies. TIME SPENT: 20 minutes Vital Signs Vital Signs Date Time Temp Pulse Resp B/P Pulse Ox O2 Delivery O2 Flow Rate FiO2 04/02/16 06:18 97.1 70 16 121/75 03/31/16 15:37 98 Room Air Current Medications Current Medications Acetaminophen (Tylenol Tab) 650 mg Q6HP PRN PO PAIN / FEVER Last administered on 04/01/16 21:33; Start 04/01/16 at 11:15; Stop 05/01/16 at 11:14 Acetaminophen (Tylenol Tab) 1,000 mg QHS PRN PO PAIN / FEVER; Start 03/31/16 at 18:30; Stop 04/01/16 at 11:18; Status DC Al Hydrox/Mg Hydrox/Simethicone (Mylanta) 30 ml Q4HP PRN PO HEARTBURN/ INDIGESTION; Start 03/31/16 at 18:15; Stop 04/30/16 at 18:14 Diphenhydramine HCl (Benadryl) 50 mg QHS PRN PO INSOMNIA; Start 03/31/16 at 18: 30; Stop 04/01/16 at 11:27; Status DC Duloxetine HCl (Cymbalta) 60 mg DAILY PO Last administered on 04/01/16 09:35; Start 04/01/16 at 09:00; Stop 05/01/16 at 08:59 Ferrous Sulfate (Ferrous Sulfate) 325 mg BID PO Last administered on 04/01/16 21:32; Start 03/31/16 at 21:00; Stop 04/30/16 at 20:59 Folic Acid (Folic Acid) 1 mg DAILY PO Last administered on 04/01/16 09:35; Start 04/01/16 at 09:00; Stop 05/01/16 at 08:59 Home Med (Med Rec Complete!) ASDIRECTED XX ; Start 03/31/16 at 13:00; Stop 01/04 at 13:15; Status DC Hydroxyzine HCl (Atarax) 25 mg QIDP PRN PO anxiety Last administered on 09:34; Start 03/31/16 at 18:30; Stop 04/01/16 at 11:27; Status DC Magnesium Hydroxide (Milk Of Magnesia) 30 ml DAILYPRN PRN PO CONSTIPATION; Start 03/31/16 at 18:15; Stop 04/30/16 at 18:14 Multivitamins (Theragram-M) 1 tab DAILY PO Last administered on 04/01/16 09:35 ; Start 04/01/16 at 09:00; Stop 05/01/16 at 08:59 Nicotine (Nicoderm Cq 21mg) 1 patch DAILY TD Last administered on 04/01/16 09: 34; Start 03/31/16 at 09:00; Stop 04/30/16 at 08:59 Omeprazole (PriLOSEC) 40 mg BID PO Last administered on 04/01/16 21:32; Start 03/31/16 at 21:00; Stop 04/30/16 at 20:59 Oxazepam (Serax) 30 mg Q6H PO Last administered on 04/02/16 06:37; Start 04/01 at 12:00; Stop 04/08/16 at 11:59 Oxazepam (Serax) 30 mg Q8H PO Last administered on 04/01/16 06:12; Start 03/31 at 22:00; Stop 04/01/16 at 11:15; Status DC Sucralfate (Carafate) 1 gm ACHS PO Last administered on 04/02/16 06:37; Start 03/31/16 at 21:00; Stop 04/30/16 at 20:59 Thiamine HCl (Thiamine HCl) 100 mg BID PO Last administered on 04/01/16 21:33 ; Start 03/31/16 at 21:00; Stop 04/03/16 at 12:00 Trazodone HCl (Desyrel) 50 mg QHSP PRN PO INSOMNIA Last administered on 21:33; Start 03/31/16 at 18:15; Stop 04/30/16 at 18:14 Allergies Coded Allergies: No Known Allergies (Unverified , 07/23/12) ROOPA MERCADO MD Apr 02, 2016 08:44
[2016-04-02] MEDS: THIAMINE 100 MG TAB PO SCH ×2 (08:48→21:15)
[2016-04-02] MEDS: DULoxetine 30 MG CAP (CYMBALTA) PO SCH (08:48)
[2016-04-02] MEDS: FOLIC ACID 1 MG TAB PO SCH (08:48)
[2016-04-02] MEDS: NICOTINE 21MG/24HR 1 EA TRANSDERMAL TD SCH (08:48)
[2016-04-02] MEDS: OMEPRAZOLE 20 MG CAP PO SCH ×2 (08:48→21:15)
[2016-04-02] MEDS: FERROUS SULFATE 325MG TAB PO SCH ×2 (08:48→21:15)
[2016-04-02] MEDS: MULTIVITAMINS/MINERALS THERAP 1 TAB PO SCH (08:48)
[2016-04-02] MEDS ORDERED: INFLUENZA QUADRIVALENT PF VACCINE 0.5ML SYRINGE/VIAL (90686) IM ONE (09:00)
[2016-04-02 09:53] VITALS: BP 121/75
--- NOTE | 2016-04-02 10:20 | HPEPDOC ---
Medical History and Physical Date of Admission Mar 31, 2016 at 15:18 History and Physical PCP: Dr Daniels ATTENDING: Dr. Malcom Ramos HPI: 55yoF admitted to [facility] for Unspecified depressive disorder, being medically examined today. The patient states she has been experiencing abdominal distress and discomfort. Dr. Bynum has been following her for this and placed her on Prilosec 40 mg twice a day and Carafate 4 times daily. She was supposed to see him tomorrow. She also states she has been experiencing low back discomfort this does not radiate down her legs. No weakness in the lower extremities. No numbness or tingling. She has had low back surgery in the past. She has not been taking any medication for her low back. She does not complain of neck pain. No weakness, numbness, or tingling in upper extremities. Denies any fevers, chills, weakness, fatigue, WEBER, CP, SOB, cough, palpitations, abdominal pain, N/V/D or changes in bowel or bladder habits. PMHx: GERD Gastric ulcer Iron deficiency anemia Depression Vitamin D deficiency PSHX: History of gastric bypass Cholecystectomy Tonsillectomy/adenoidectomy Bilateral TKA Lumbar discectomy SOCHX: Resides in: [facility] Marital Status: Kids: 4 Employment: Unemployed Tobacco use: One pack per day ETOH: 6 beers or to blackout daily Illicit Drugs: Denies IV Drug Use: Denies Tattoos done unprofessionally: Denies FAMHX: Mother: Alive, well Father: , stomach cancer Siblings: Alive, hypertension, obesity Children: Alive, history of depression, opiate use Unexpected deaths due to medical reasons: None. ROS: As noted in HPI, otherwise 11pt ROS of systems reviewed and remarkable only for postmenopausal. PE: GEN: 55yoF, appears stated age. Well-nourished, well developed. No acute distress. Alert and oriented x 3. Pleasant, interactive. HEENT: Normocephalic, atraumatic. Pupils are equal, round, and reactive to light. Extraocular movements are intact. No nystagmus appreciated. Sclera are nonicteric. Conjunctiva without injection. Nose midline. Nasal turbinates without bogginess. EACs both patent BL. TMs both visualized and aleman with good cone of light, no bulging or erythema. No facial asymmetry. Moist mucous membranes. Dentition fair. Pharynx pink and moist, no cobblestoning. Neck supple , trachea midline. No lymphadenopathy or thyromegaly appreciated. CHEST: Regular rate and rhythm, +S1, +S2 LUNGS: Clear to auscultation bilaterally. No wheezes, rales, or rhonchi. Breathing appears symmetric and easy. Patient is speaking in full sentences. No accessory muscle use. ABD: Round, soft, mild tenderness noted in the epigastric area, non-distended. + Bowel sounds throughout. No rebound or guarding. No costovertebral angle tenderness. EXT: Pulses 2+ bilaterally dorsalis pedis and radial. No lower extremity edema appreciated. SKIN: Brinson, dry, warm. Capillary refill <2sec. No rashes. NEURO: Alert and oriented x 3. Cranial nerves III-XII are intact. No focal deficits appreciated. EKG: pending A&P: 55yoF admitted to [facility] for Unspecified depressive disorder 1. Psych. Plan per Psychiatry. Obtain baseline EKG to assure the safety of psychiatric medications as they can prolong the QT interval. 2. Nicotine dependence. Patch available. 3. Patient received flu vaccine 04/02/16. 4. Follow up with PCP on discharge. Dr Daniels. 5. Substance use. Withdrawal per psychiatry. Continue with MVI, Thiamine, and Folic Acid supplementation. 6. GERD/H/O Gastric Ulcer. Copy of records from Dr Bynum. Continue Prilosec 40 mg by mouth twice a day, Carafate suspension 10 mL 4 times a day. Recheck CMP. Add amylase/lipase. 7. Iron deficiency anemia. Continue iron supplement 325 mg by mouth twice a day. Hemoglobin is noted to be 15.5. 8. Vitamin D deficiency. Continue vitamin D supplement. 9. History of gastric bypass. 10. Accompanied throughout exam by Dede VINCENT. Vital Signs Vital Signs Label Value Date Time Patient Temperature 97.1 degrees F 04/02/16617 Temperature Source Tympanic 04/02/16617 Pulse 70 04/02/16617 Respiratory Rate 16 bpm 04/02/16617 Blood Pressure Assessment 121/75 (90) 04/02/16617 Laboratory Data Labs 24H Item Value Date Time White Blood Count 4.2 K/mm3 03/30/162201 Red Blood Count 4.84 M/mm3 03/30/162201 Hemoglobin 15.5 g/dl 03/30/162201 Hematocrit 48.4 % H 03/30/162201 Mean Corpuscular Volume 99.9 fl H 03/30/162201 Mean Corpuscular Hemoglobin 32.0 pg 03/30/162201 Mean Corpuscular Hemoglobin Concent 32.0 g/dl 03/30/162201 Red Cell Distribution Width 14.0 % 03/30/162201 Platelet Count 257 k/mm3 03/30/162201 Sodium Level 145 MEQ/L 04/01/16 0710 Potassium Level 4.0 MEQ/L 04/01/16 0710 Chloride Level 106 MEQ/L 04/01/16 0710 Carbon Dioxide Level 34 MEQ/L H 04/01/16 0710 Anion Gap 5 MEQ/L L 04/01/16 0710 Blood Urea Nitrogen 5 MG/DL L 04/01/16 0710 Creatinine 0.54 MG/DL L 04/01/16 0710 Glomerular Filtration Rate > 60.0 04/01/16 0710 Fasting Glucose 78 MG/DL 04/01/16 0710 Calcium Level 8.6 MG/DL 04/01/16 0710 Total Bilirubin 1.2 MG/DL H # 04/01/16 0710 Aspartate Amino Transf (AST/SGOT) 43 U/L H 04/01/16 0710 Alanine Aminotransferase (ALT/SGPT) 27 U/L 04/01/16 0710 Alkaline Phosphatase 149 U/L H 04/01/16 0710 Total Protein 6.3 GM/DL L 04/01/16 0710 Albumin 2.9 GM/DL L 04/01/16 0710 Albumin/Globulin Ratio 0.85 L 04/01/16 0710 Salicylates Level 1.9 MG/DL L 03/30/162201 Urine Opiates Screen NEGATIVE 03/30/162201 Urine Methadone Screen NEGATIVE 03/30/162201 Acetaminophen Level < 2.0 UG/ML L 03/30/162201 Urine Barbiturates, Qualitative NEGATIVE 03/30/162201 Urine Tricyclic Antidepressants NEGATIVE 03/30/162201 Urine Amphetamine Level NEGATIVE 03/30/162201 Urine Benzodiazepines Screen NEGATIVE 03/30/162201 Urine Cocaine Metabolite NEGATIVE 03/30/162201 Urine Cannabinoids NEGATIVE 03/30/162201 Ethyl Alcohol Level 0.409 % H 03/30/162201 Home Medications Scheduled Duloxetine Hcl (Duloxetine HCl) 60 Mg Cap 60 MG PO DAILY Ferrous Sulfate (Ferrous Sulfate) 325 Mg Tab 325 MG PO BID Multivitamins *[facility] STOCKED* (Thera M Plus *[facility] STOCKED*) 1 Tab Tab 1 TAB PO DAILY Omeprazole (Omeprazole) 40 Mg Cap 40 MG PO BID Sucralfate (Carafate) 1 Gm/10 Ml Belén 10 ML PO ACHS 4 times per day on an empty stomach 1 hour before meals and at bedtime Vitamin D (Drisdol) 50,000 Unit Cap 50,000 UNIT PO QMONTH Scheduled PRN (Tylenol Pm Extra Strength 500-25 mg) 1 Tab Tab 2 TAB PO QHS PRN PRN SLEEP Hydroxyzine HCl (Hydroxyzine HCl) 25 Mg Tab 25 MG PO QID PRN PRN ANXIETY Allergies Coded Allergies: No Known Allergies (Unverified , 07/23/12) Ivonne Addison Apr 02, 2016 10:20
[2016-04-02 11:20] VITALS: BP 146/94
[2016-04-02 11:26] LABS: ALBUMIN/GLOBULIN RATIO 0.91 (1.00-1.93); ALKALINE PHOSPHATASE 147 U/L (45-117); ALT/SGPT 26 U/L (12-78); AMYLASE 20 U/L (25-115); ANION GAP 7 MEQ/L (8-16); AST/SGOT 44 U/L (15-37); BILIRUBIN,TOTAL 0.8 MG/DL (0.2-1.0); BLOOD UREA NITROGEN 11 MG/DL (7-18); CALCIUM LEVEL 8.8 MG/DL (8.5-10.1); CARBON DIOXIDE LEVEL 31 MEQ/L (21-32); CHLORIDE LEVEL 107 MEQ/L (98-107); CREATININE FOR GFR 0.61 MG/DL (0.55-1.02); GLOMERULAR FILTRATION RATE > 60.0 (>51); GLUCOSE, FASTING 83 MG/DL (70-105); POTASSIUM SERUM 3.8 MEQ/L (3.5-5.1); SODIUM LEVEL 145 MEQ/L (136-145); TOTAL PROTEIN 6.3 GM/DL (6.4-8.2)
--- NOTE | 2016-04-02 15:00 | REP ---
Clinical: Lower back pain. Technique: AP, lateral, bilateral oblique and cone down views of the lumbosacral spine. Findings: Alignment and lordosis maintained. No acute fracture / compression injury or subluxation. Moderate to early advanced multilevel degenerative disc osteophyte complexes are noted. Findings include osteophytosis, endplate sclerosis, hypertrophic facet changes, and disc space narrowing. Findings are most pronounced at the L5-S1 level. Impression: Moderate early advanced multilevel degenerative disc osteophyte complexes. Signed by Alin Watkins MD 04/02/2016 02:52 P
--- NOTE | 2016-04-02 16:02 | EDDOCDS ---
Nurse's Notes [facility] Name: Amee Newman Age: 55 yrs Sex: Female : 1960 Arrival Date: 03/30/2016 Time: 21:53 Bed OBSERVATION Private MD: Diagnosis: Suicidal ideations;Alcohol abuse counseling and surveillance;Alcohol abuse;Alcohol abuse with intoxication, uncomplicated Presentation: 03/30 22:00 Presenting complaint: law enforcement states called to residence by boyfriend for SI ttb ideation/attempts using scissors. Mental Health Triage Level: Level 2: The patient displays active suicidal ideations. The patient was brought to the ED for evaluation because of a legal pickup order. Adult Sepsis Screening: The patient does not have new or worsening altered mentation. Patient's respiratory rate is less than 22. Systolic blood pressure is greater than 100. Patient has a qSOFA score of 0- Negative Sepsis Screen. 22:00 Acuity: ASHISH Level 3 ttb 22:00 Mental Health Triage Level: Level 2: The patient displays active suicidal ideations. ttb The patient was brought to the ED for evaluation because of a legal pickup order. Suicide/Homicide risk assessment- The patient admits to and/or has been reported to be having suicidal ideations. The patient reports that he/she has a recent or current history of substance abuse. Status: Patient is not a field service supervisor or dependent. Transition of care: patient was not received from another setting of care. 22:00 Method Of Arrival: Police Car ttb Triage Assessment: 22:21 Pain: Denies pain. HIV screening NA for this visit Offered previously. Neurological: ttb Level of Consciousness is awake, alert. Cardiovascular: Chest pain is denied. Respiratory: No deficits noted. Airway is patent Respiratory effort is even, unlabored, Denies cough, shortness of breath. GI: Denies nausea, vomiting, pain. Derm: Skin is normal. 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 omeprazole 40 mg oral cpDR 1 cap 2 times per day (Last dose: 03/30/2016 09:00) 2. duloxetine 60 mg Oral cpDR 1 cap once daily (Last dose: 03/30/2016 09:00) 3. hydroxyzine HCl 25 mg Oral tab 1 tab 4 times per day as needed (Last dose: 03/29/2016) 4. Carafate 100 mg/mL Oral susp 10 mL 4 times per day (Last dose: 03/30/2016 19:00) 5. ferrous sulfate 325 mg (65 mg iron) Oral tab 325 mg twice a day (Last dose: Unknown) 6. Vitamin D Oral 50,000 unit monthly (Last dose: 02/2016) - PMHx: Depression; - PSHx: Gastric Bypass; Cholecystectomy; Adenoidectomy; Tonsillectomy; left knee surgery; - Social history: Smoking status: Patient uses tobacco products, current every day smoker. Patient uses alcohol on a daily basis. Patient/guardian denies using street drugs, No barriers to communication noted, The patient speaks fluent Lao, Speaks appropriately for age. - Family history: Not pertinent. - : The pt / caregiver states he / she is not on anticoagulants. Home medication list is obtained from the patient, Note Medications verified by [employer] external history and confirmed by patient. 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 Screenin:40 Screening information is obtained from the patient. Fall risk: At risk due to apparent jc4 chemical impairment, The following interventions are performed due to a positive Fall Risk Screen: Fall Risk is added to Special Handling on the patient Summary Screen. A Fall Risk Bracelet was applied to the patient. Side Rails are placed in the up position. A Call Small is given with instruction to call for help when getting out of bed. Assistance ADL's: requires no assistance with activities of daily living. Abuse/DV Screen: The patient / caregiver reports he/she is: not in a situation that causes fear, pain or injury. Nutritional screening: No deficits noted. Advance Directives: Currently, there is a health care proxy, Agustina Vazquez, daughter. There is no active DNR order. There is no living will. There is no Power of City Carrier Assistant. home support is adequate. Assessment: 03/30 22:12 General: Appears in no apparent distress, Behavior is cooperative, Smells of alcohol. slm Neurological: Level of Consciousness is awake, alert, obeys commands. Respiratory: Airway is patent Respiratory effort is even, unlabored. Derm: Skin is pink, warm & dry. 23:10 General: Appears in no apparent distress, comfortable, Behavior is cooperative. slm General: pt ambulated to bathroom with steady gait security observing . Pain: Denies pain. Respiratory: Airway is patent Respiratory pattern is regular. 03/31 00:12 General: Appears in no apparent distress, comfortable, to be sleeping. Behavior is slm quiet. General: pr asleep on stretcher security observing . Respiratory: Airway is patent Respiratory effort is even, unlabored. 01:22 General: Appears in no apparent distress, comfortable, to be sleeping. Behavior is slm quiet. General: security observing . Respiratory: Airway is patent Respiratory effort is even, unlabored. Derm: Skin is pink, warm & dry. 02:37 General: Appears in no apparent distress, Behavior is anxious, cooperative, crying. slm General: pt crying appears anxious upset at this time meds given will cont to monitor . Neurological: Level of Consciousness is awake, alert, obeys commands. Respiratory: Airway is patent Respiratory effort is even, unlabored. 03:50 General: Appears in no apparent distress, comfortable, to be sleeping. Behavior is slm quiet. General: pt asleep at this time no distress noted will cont to monitor security observing . Respiratory: Airway is patent Respiratory effort is even, unlabored. Derm: Skin is pink, warm & dry. 04:40 Reassessment: Patient appears in no apparent distress at this time. Patient states slm symptoms have improved. General: Appears in no apparent distress, comfortable, to be sleeping. Behavior is quiet. General: pt asleep on stretcher security observing . Respiratory: Airway is patent Respiratory effort is even, unlabored, Respiratory pattern is regular. Derm: Skin is pink, warm & dry. 05:58 General: Appears in no apparent distress, comfortable, to be sleeping. Behavior is slm quiet. General: pt resting on stretcher security observing . Respiratory: Airway is patent Respiratory effort is even, unlabored, Respiratory pattern is regular. Derm: Skin is pink, warm & dry. 06:47 General: Appears in no apparent distress, comfortable, Behavior is cooperative, quiet. slm General: pt resting on stretcher denies needs security observing . Pain: Denies pain. Neurological: Level of Consciousness is alert, obeys commands. Respiratory: Airway is patent Respiratory effort is even, unlabored. Derm: Skin is pink, warm & dry. 07:47 General: Appears in no apparent distress, Behavior is anxious, cooperative. pml Neurological: Level of Consciousness is awake, alert, Oriented to person, place, time. Cardiovascular: Capillary refill < 3 seconds. Respiratory: Airway is patent Respiratory effort is even, unlabored. Derm: Skin is pink, warm & dry. 09:20 General: Orin Bernal, PSA in to speak with patient at this time. jc4 09:41 General: Appears in no apparent distress, comfortable, Behavior is cooperative. jc4 General: Yolande antonio given per patient request. Pt remains under security observation at this time. Neurological: Level of Consciousness is awake, alert, Oriented to person, place, time. Respiratory: Airway is patent Respiratory effort is even, unlabored, Respiratory pattern is regular, symmetrical. Derm: Skin is pink, warm & dry. 10:50 General: Appears Pt sitting up on stretcher, tearful. Requesting phone to call home. Pt jc4 asking, "am I going to stay? I don't want to stay". Pt's hands noted to be tremulous. VS obtained. Dr. Dhaliwal updated on patient condition and orders received. Pt remains under security observation at this time. Additional yolande antonio given per request. 11:34 General: Pt sitting on stretcher. Appears calm. Speaking with family members. jc4 12:23 General: Pt sitting up on stretcher. Speaking with family members at bedside. States jc4 vomited x 1 approximately 30 minutes ago, "I drank my yolande antonio too fast". Hands remain mildly tremulous. Denies any nausea currently. Security observation continuing. 13:09 General: Lunch tray given. Pt denies any complaint at this time. Security observation jc4 continuing. 14:40 General: Pt lying on stretcher. Appears in no distress at this time. Security continues jc4 to observe patient. 14:57 General: Appears in no apparent distress, Behavior is cooperative. Neurological: Level jc4 of Consciousness is awake, alert, Oriented to person, place, time. Respiratory: Airway is patent Respiratory effort is even, unlabored, Respiratory pattern is regular, symmetrical. Derm: Skin is pink, warm & dry. Mental Health Eval: 03/30 22:00 Referral Information: Evaluation referral is generated by a police agency: Dianna whyte on .. The patient was referred for evaluation because Pt drinking tonight, possible drug use as well, expressed SI to her S.O. who called 911. Pt reportedly had scissors taken away by S.O. as well. Pt has prior psych hx with 2 prior psych admissions to [facility].. 03/31 10:37 Mental health consult is initiated at 09:05. Status: The patient is not a rb field service supervisor or dependent. [facility] Behavioral Health: The patient is not an established patient of [facility] Behavioral Health. Referral Information: The patient was referred for evaluation because Pt presented to ED +ETOH (CESAR .409), stating +SI. Pt is now sober and continues to state SI, teary, reported increased anxiety, and depressed. Pt stated "Told him (BF) I wanted to kill myself". "Very Depressed". Pt reported stressors as; Youngest Dgt living in [place], Son just moved to [place], on 10/03 quit her job ("and loved it, was really stressful, wished I hadn't"), worked on the [place] floor \\[facility]. Additional stressors are; CPS removed 2 children from the home of Another Dgt living in [place]. Pt's mother has custody and Pt is not allowed to be around them because" I'm a drunk". "I just feel like a loser". "I also went through a bad divorce 13 years ago. I never got over". Pt reported had to have all her teeth pulled a year ago. Had trouble with insurance so was not able to get them replaced. Pt stated Embarrassed to go anywhere or talk to anyone. . Subjective: The patients chief complaint is Depressed, increased anxiety, +SI no plan. . Delusions are denied. Patient's mood is anxious, dysphoric, hopeless, Hallucinations are denied. Mental Health history: alcohol abuse, anxiety, depression, suicide ideation twice; 6 yrs ago and 13 years ago. Mental Health Admissions: [facility], 6 years ago for +SI, and [facility], 13 yrs ago for +SI. Current Outpatient Mental Health Services: Completed Rehab [facility], 5yrs ago. Attended and [facility] ([place]) in the past. Pt reported was sober for 2 years. . Current living environment is The patient currently lives with his / her significant other, of 13 years.. Patient presents to Emergency Department with the following symptoms within the past 2 weeks: alcohol abuse, anxiety, depressed mood, feelings of helplessness/hopelessness, poor impulse control, suicidal ideation with no plan. Substance abuse: Patient uses beer, of LOCOS 4 LOCOS and Beer + daily. Mental status exam: Patients appearance is disheveled Patient's behavior is cooperative, crying. Speech is normal. Affect is flat. Mood is anxious. dysphoric. Hallucinations are denied. Appetite is poor. Memory is good. Energy level is lethargic. Content of thought is depressive. "I just don't want to be here". Thought process is characterized by flight of ideas. Cognitive level is oriented to person, place, time and situation Patient's insight is poor. Judgement is poor. Rapport with interviewer is good. Suicidal Ideation is present with no specific plan. Homicidal ideation is not present. Disposition: Medically cleared for disposition by Karissa Whitt MD. 11:34 Disposition: Psychiatric Consult is performed by phone with Dr Aki Worthington. [facility] rb Admission Criteria: The patient is experiencing suicidal ideation. The patient displays symptoms of severe psychiatric disorder resulting in disordered behavior and significant interference with his / her ability to maintain self care. Severe Anxiety. The patient requires continuous observation and/or control to protect self, others or property. The patient's care requires a multi-modal treatment plan under close supervision and coordination due to the complexity and severity of the patient's symptoms. Legal Status: Patient's legal status will be Emergency admission: 39. [place] Safe Act: [place] Safe Act is applicable to this patient. The patient poses a risk to self or other and the Nursing Cooker Loader has been notified. He/She will enter the patient's data. Pt states preferred pharmacy is: [facility] in [place]. 14:09 DSM-V Differential Diagnosis: Unspecified Depressive Disorder (F32.9). Insurance rb Pre-Certification: Not Required. Awaiting: transfer to [facility]. Vital Signs: 03/30 22:00 BP 132 / 89; Pulse 104; Resp 20; Temp 96.2(T); Pulse Ox 96% ; Weight 53.07 kg; Height 4 mas ft. 11 in. (149.86 cm); 03/31 02:17 BP 155 / 90; Pulse 89; Resp 20; Pulse Ox 99% ; Pain 9/10; mas 05:07 BP 125 / 78; Pulse 85; Resp 16; Temp 95.8(T); Pulse Ox 96% on R/A; Pain 0/10; slm 11:00 BP 151 / 108; Pulse 108; Resp 20; Temp 99.5(TE); Pulse Ox 98% on R/A; Pain 0/10; jc4 12:23 BP 165 / 94; Pulse 104; Resp 20; Pulse Ox 98% on R/A; jc4 14:58 BP 161 / 98; Pulse 101; Resp 17; Temp 99(TE); Pulse Ox 97% on R/A; pjf 02 22:00 Body Mass Index 23.63 (53.07 kg, 149.86 cm) [facility] Vitals: 03/30 22:21 Log In time N/A- police car arrival. ttb ED Course: 21:55 Patient visited by Darcy Franco. gjb 21:55 Patient moved to Waiting gjb 22:00 Patient visited by Ji Todd. mas 22:00 Patient moved to [address] 22:04 Pt greeted and oriented to ED. Patient advised of names of staff involved in care, [facility] location of call small, wait times and NPO status. Accompanied by Law Enforcement, DUL[place] on , Patient has correct armband on for positive identification. Placed in psych safe attire. Bed in low position. Call light in reach. Side rails up X 1. Security observing. Property removed, inventory done, secured in belongings bag- Placed in locker 3. Door closed. Noise minimized. Moved to private room. Verbal reassurance given. Warm blanket given. Pillow given. Psych Safety Check: Location: Psych Room. Visual Assessment: cooperative \\T\\ this time. 22:12 Bridget Bailey LPN is Primary Nurse. slm 22:12 Labs drawn. (by ED staff). Sent per order to lab. Urine collected. Urine specimen sent sl to lab. 22:13 Patient visited by Bridget Bailey LPN. slm 22:15 Patient visited by Ji Todd. [facility] 22:20 Triage Initiated ttb 22:29 Kyle Benitez FNP is [facility]. ke 22:29 Patient visited by yKle Benitez FNP. ke 22:29 Patient visited by Kyle Benitez FNP. ke 22:31 Patient visited by Ji Todd. mas 22:45 Patient visited by Ji Todd. mas 23:02 Patient visited by Ji Todd. mas 23:11 Patient moved to OBSERVATION ke 23:15 Patient visited by Ji Todd. mas 23:30 Patient visited by Ji Todd. mas 23:45 Patient visited by Ji Todd. mas 23:47 Tony Cramer DO is Attending Physician. mm11 03/31 00:00 Patient visited by Ji Todd. mas 00:15 Patient visited by Ji Todd. mas 00:30 Patient visited by Ji Todd. mas 00:46 Patient visited by Ji Todd. mas 01:00 Patient visited by Ji Todd. mas 01:15 Patient visited by Ji Todd. mas 01:22 Patient visited by Bridget Bailey LPN. slm 01:30 Patient visited by Ji Todd. mas 01:46 Patient visited by Ji Todd. mas 02:00 Patient visited by Ji Todd. mas 02:16 Patient visited by Ji Todd. mas 02:30 Patient visited by Ji Todd. mas 02:38 Patient visited by Bridget Bailey LPN. slm 02:45 Patient visited by Ji Todd. mas 03:00 Patient visited by Ji Todd. mas 03:30 Patient visited by Ji Todd. mas 03:45 Patient visited by Ji Todd. mas 04:01 Patient visited by Ji Todd. mas 04:15 Patient visited by Ji Todd. mas 04:31 Patient visited by Ji Todd. mas 04:45 Patient visited by Ji Todd. mas 05:00 Patient visited by Ji Todd. mas 05:09 Patient visited by Bridget Bailey LPN. slm 05:09 The patient / caregiver is instructed regarding the plan of care and ED course. slm 05:09 No IV's were initiated during this patient's visit. No procedures done that require slm assistance. 05:15 Patient visited by Ji Todd. mas 05:30 Patient visited by Ji Todd. mas 05:45 Patient visited by Ji Todd. mas 06:00 Patient visited by Ji Todd. mas 06:15 Patient visited by Ji Todd. mas 06:30 Patient visited by Ji Todd. mas 06:45 Patient visited by Ji Todd. mas 06:48 Patient visited by Bridget Bailey LPN. slm 06:57 Attending Physician role handed off by Tony Cramer DO ml 06:57 Karissa Whitt MD is Attending Physician. ml 07:00 Patient visited by Ji Todd. mas 07:06 Patient visited by John Feliciano Security Aide. pjf 07:29 Patient visited by John Feliciano Security Aide. pjf 07:45 Patient visited by John Feliciano Security Aide. pjf 08:03 Patient visited by John Feliciano Security Aide. pjf 08:19 Patient visited by John Feliciano Security Aide. pjf 08:27 Patient visited by John Feliciano Security Aide. pjf 08:28 Patient visited by Windy Vega,MELISA. pml 08:54 Patient visited by John Feliciano Security Aide. pjf 09:01 Cyndie Telles, MELISA is Primary Nurse. jc4 09:02 Patient visited by John Feliciano Security Aide. pjf 09:34 Patient visited by John Feliciano Security Aide. pjf 09:37 Patient name changed from Amee\\S\\\\S\\Hirschy\\S\\ to Amee\\S\\ \\S\\Hirschy. EDMS 09:44 [facility] [place] was scanned into Followap and attached to record. gb 09:45 Psych Safety Check: Location: Psych Room. Visual Assessment: Cooperative. pjf 10:01 Patient visited by John Feliciano Security Aide. pjf 10:15 Patient visited by John Feliciano Security Aide. pjf 10:43 Patient visited by John Feliciano Security Aide. pjf 10:57 Patient visited by John Feliciano Security Aide. pjf 11:15 Psych Safety Check: Location: Psych Room. Visual Assessment: Cooperative. pjf 11:30 Psych Safety Check: Location: Psych Room. Visual Assessment: Cooperative. pjf 11:45 Patient visited by John Feliciano Security Aide. pjf 11:55 WorthingtonAki is Hospitalizing Provider. ml 11:58 Patient visited by John Feliciano Security Aide. pjf 12:18 Patient visited by John Feliciano Security Aide. pjf 12:34 Patient visited by John Feliciano Security Aide. pjf 12:45 Patient visited by John Feliciano Security Aide. pjf 14:12 E Legal paperwork was scanned into Followap and attached to record. ml4 04/01 18:09 T-Sheet-- Draft Copy was scanned into Followap and attached to record. kf3 Administered Medications: 03/30 23:08 Drug: Nicotine 1 applic [nicotine 21 mg/24 hr daily transdermal patch (1 patches)] [facility] Route: Transdermal; Site: left upper arm; 03/31 02:37 Drug: GI Cocktail - (Alum-Mag Hydroxide-Simeth Suspension 225 mg-200 mg-25 mg/5 mL 30 slm ml, Lidocaine Liquid 2 % 10 ml, Hyoscyamine Liquid 10 ml) Route: PO; 03:51 Follow up: Response: Nausea is decreased [facility] 02:37 Drug: Oxazepam 30 mg [oxazepam 15 mg capsule (2 caps)] Route: PO; [facility] 03:51 Follow up: Response: Anxiety is improved [facility] 11:07 Drug: Oxazepam 30 mg [oxazepam 15 mg capsule (2 caps)] Route: PO; jc4 12:23 Follow up: BP 165 / 94; Pulse 104 bpm; Resp 20 bpm; Pulse Ox 98% RA 4 12:39 Drug: hydrOXYzine 25 mg [hydroxyzine HCl 25 mg tablet (1 tabs)] Route: PO; jc4 Attachments: 14:12 MHE Legal paperwork ml4 Order Results: Lab Order: Acetaminophen Level; SPEC'M 03/30/16 22:02 Test: ACETAMINOPHEN LEVEL; Value: < 2.0; Range: 10.0-30.0; Abnormal: Below low normal; Units: UG/ML; Status: F Lab Order: Basic Metabolic Profile; [facility] 03/30/16 22:02 Test: GLUCOSE, FASTING; Value: 106; Range: 70-105; Abnormal: Above high normal; Units: MG/DL; Status: F Test: BLOOD UREA NITROGEN; Value: 4; Range: 7-18; Abnormal: Below low normal; Units: MG/DL; Status: F Test: CREATININE FOR GFR; Value: 0.57; Range: 0.55-1.02; Units: MG/DL; Status: F Test: SODIUM LEVEL; Range: 136-145; Units: MEQ/L; Status: I Test: POTASSIUM SERUM; Range: 3.5-5.1; Units: MEQ/L; Status: I Test: CHLORIDE LEVEL; Range: 98-107; Units: MEQ/L; Status: I Test: CARBON DIOXIDE LEVEL; Range: 21-32; Units: MEQ/L; Status: I Test: ANION GAP; Range: 8-16; Units: MEQ/L; Status: I Test: CALCIUM LEVEL; Range: 8.5-10.1; Units: MG/DL; Status: I Test: GLOMERULAR FILTRATION RATE; Value: > 60.0; Range: >51; Status: F Test: SODIUM LEVEL; Value: 149; Range: 136-145; Abnormal: Above high normal; Units: MEQ/L; Status: F Test: POTASSIUM SERUM; Value: 3.9; Range: 3.5-5.1; Units: MEQ/L; Status: F Test: CHLORIDE LEVEL; Value: 110; Range: 98-107; Abnormal: Above high normal; Units: MEQ/L; Status: F Test: CARBON DIOXIDE LEVEL; Value: 30; Range: 21-32; Units: MEQ/L; Status: F Test: ANION GAP; Value: 9; Range: 8-16; Units: MEQ/L; Status: F Test: CALCIUM LEVEL; Value: 7.9; Range: 8.5-10.1; Abnormal: Below low normal; Units: MG/DL; Status: F Test Note: ; Units are mL/min/1.73 m2 Chronic Kidney Disease Staging per NKF: Stage I & II GFR >=60 Normal to Mildly Decreased Stage III GFR 30-59 Moderately Decreased Stage IV GFR 15-29 Severely Decreased Stage V GFR <15 Very Little GFR Left ESRD GFR <15 on MATH TEACHER Lab Order: Complete Blood Count; SPEC'M 03/30/16 22:02 Test: WHITE BLOOD COUNT; Value: 4.2; Range: 4.0-10.0; Units: K/mm3; Status: F Test: RED BLOOD COUNT; Value: 4.84; Range: 4.00-5.40; Units: M/mm3; Status: F Test: HEMOGLOBIN; Value: 15.5; Range: 12.0-16.0; Units: g/dl; Status: F Test: HEMATOCRIT; Value: 48.4; Range: 36.0-47.0; Abnormal: Above high normal; Units: %; Status: F Test: MEAN CORPUSCULAR VOLUME; Value: 99.9; Range: 80.0-96.0; Abnormal: Above high normal; Units: fl; Status: F Test: MEAN CORPUSCULAR HEMOGLOBIN; Value: 32.0; Range: 27.0-33.0; Units: pg; Status: F Test: MEAN CORPUSCULAR HGB CONC; Value: 32.0; Range: 32.0-36.5; Units: g/dl; Status: F Test: RED CELL DISTRIBUTION WIDTH; Value: 14.0; Range: 11.5-14.5; Units: %; Status: F Test: PLATELET COUNT, AUTOMATED; Value: 257; Range: 150-450; Units: k/mm3; Status: F Lab Order: Drug Eval Toxicology ED Only; SPEC'M 03/30/16 22:02 Test: AMPHETAMINES LEVEL URINE; Value: NEGATIVE; Range: NEGATIVE; Status: F Test: BARBITURATES URINE; Value: NEGATIVE; Range: NEGATIVE; Status: F Test: BENZODIAZEPINES URINE; Value: NEGATIVE; Range: NEGATIVE; Status: F Test: CANNABINOIDS URINE; Value: NEGATIVE; Range: NEGATIVE; Status: F Test: COCAINE METABOLITE URINE; Value: NEGATIVE; Range: NEGATIVE; Status: F Test: METHADONE URINE; Value: NEGATIVE; Range: NEGATIVE; Status: F Test: OPIATES URINE; Value: NEGATIVE; Range: NEGATIVE; Status: F Test: TRICYCLIC ANTIDEPRESS URINE; Value: NEGATIVE; Range: NEGATIVE; Status: F Test Note: ; ALL PRESUMPTIVE POSITIVE FINDINGS ARE UNCONFIRMED NORMAL VALUES THRESHOLD IN NG/ML AMPHETAMINES 1000 METHAMPHETAMINES 1000 BARBITURATES 300 BENZODIAZEPINES 300 CANNABINOIDS (THC) 50 COCAINE METABOLITE 300 METHADONE 300 OPIATES 300 PHENCYCLIDINE 25 TRICYCLIC ANTIDEPRESSANTS 1000 RESULTS ARE FOR MEDICAL PURPOSES ONLY. ALL URINE SPECIMENS WILL BE SAVED FOR 3 DAYS. IF CONFIRMATION OF A PRESUMPTIVE POSTIVE SCREEN RESULT IS DESIRED, CALL CHEMISTRY ([phone]) AND REQUEST URINE TO BE SENT TO REFERENCE LAB. FOR A LIST OF CLOSELY RELATED COMPOUNDS PLEASE CALL THE LAB. Lab Order: Ethyl Alcohol (ethanol); SPEC' 03/30/16 22:02 Test: ETHYL ALCOHOL (ETHANOL); Value: 0.409; Range: 0.000-0.010; Abnormal: Above high normal; Units: %; Status: F Lab Order: HCG,Serum Qualitative; SPEC' 03/30/16 22:02 Test: HCG, SERUM QUALITATIVE; Value: NEGATIVE; Range: NEGATIVE; Status: F Lab Order: Liver Profile; [facility]' 03/30/16 22:02 Test: AST/SGOT; Value: 38; Range: 15-37; Abnormal: Above high normal; Units: U/L; Status: F Test: ALT/SGPT; Value: 26; Range: 12-78; Units: U/L; Status: F Test: ALKALINE PHOSPHATASE; Value: 126; Range: 45-117; Abnormal: Above high normal; Units: U/L; Status: F Test: BILIRUBIN,TOTAL; Value: 0.3; Range: 0.2-1.0; Units: MG/DL; Status: F Test: BILIRUBIN,DIRECT; Value: < 0.1; Range: 0.0-0.2; Units: MG/DL; Status: F Test: TOTAL PROTEIN; Value: 6.8; Range: 6.4-8.2; Units: GM/DL; Status: F Test: ALBUMIN; Value: 3.2; Range: 3.2-5.2; Units: GM/DL; Status: F Test: ALBUMIN/GLOBULIN RATIO; Value: 0.89; Range: 1.00-1.93; Abnormal: Below low normal; Status: F Lab Order: Salicylate Level; SPEC' 03/30/16 22:02 Test: SALICYLATE LEVEL; Value: 1.9; Range: 5.0-30.0; Abnormal: Below low normal; Units: MG/DL; Status: F Lab Order: Thyroid Stimulating Hormone; SPEC'M 03/30/16 22:02 Test: THYROID STIMULATING HORMONE; Value: 0.998; Range: 0.358-3.740; Units: uIU/ML; Status: F Outcome: 03/31 05:09 No special radiology studies were completed. [facility] 11:55 Decision to Hospitalize by Provider. 14:59 Discharge Assessment: patient administered narcotics - no. The following High Risk [facility] Discharge criteria are identified: Yes, patient has been evaluated by PSA during this ED visit. Admitted to Psych accompanied by tech, via wheelchair, with chart. Condition: stable. 15:01 Patient left the ED. [facility] Signatures: Dispatcher [employer] EDMS Karissa Whitt MD MD ml Marine Bernal, PSA PSA rb Kaden Hurt, PSA PSA cl Gila, Kristal, Reg Reg gb John Feliciano, Security Aide [facility] Kyle Benitez, ACCOUNTANT BOOKKEEPER ACCOUNTANT BOOKKEEPER Dede Cook, PSA PSA ml4 Tony Cramer, DO DO mm11 Lanre Diaz, Reg Reg kf3 Cyndie Telles RN RN jcJi Rosen Paulina,RN Vandana Soliman RN RN ttb Bridget Bailey LPN LPN slm Beck, Gabriela gjb Corrections: (The following items were deleted from the chart) 09:39 03/30 22:21 Home Meds: Omeprazole Oral once daily; [facility] jc4 03/31 09:39 02 22:21 Home Meds: "depression meds" daily; [facility] Complete MTDD
--- NOTE | 2016-04-02 16:02 | EDDOCDS ---
Physician Documentation [facility] Name: Amee Newman Age: 55 yrs Sex: Female : 1960 Arrival Date: 03/30/2016 Time: 21:53 Bed OBSERVATION Private MD: Disposition: 03/31/16 11:55 Hospitalization ordered by Aki Worthington for Inpatient Admission. Preliminary diagnosis are Suicidal ideations, Alcohol abuse counseling and surveillance, Alcohol abuse, Alcohol abuse with intoxication, uncomplicated. - Bed requested for Admit. - Status is Inpatient Admission. jc4 - Condition is Stable. - Problem is new. - Symptoms are unchanged. Historical: - Allergies: no known allergies; - Home Meds: 1. omeprazole 40 mg oral cpDR 1 cap 2 times per day (Last dose: 03/30/2016 09:00) 2. duloxetine 60 mg Oral cpDR 1 cap once daily (Last dose: 03/30/2016 09:00) 3. hydroxyzine HCl 25 mg Oral tab 1 tab 4 times per day as needed (Last dose: 03/29/2016) 4. Carafate 100 mg/mL Oral susp 10 mL 4 times per day (Last dose: 03/30/2016 19:00) 5. ferrous sulfate 325 mg (65 mg iron) Oral tab 325 mg twice a day (Last dose: Unknown) 6. Vitamin D Oral 50,000 unit monthly (Last dose: 02/2016) - PMHx: Depression; - PSHx: Gastric Bypass; Cholecystectomy; Adenoidectomy; Tonsillectomy; left knee surgery; - Social history: Smoking status: Patient uses tobacco products, current every day smoker. Patient uses alcohol on a daily basis. Patient/guardian denies using street drugs, No barriers to communication noted, The patient speaks fluent Mongolian, Speaks appropriately for age. - Family history: Not pertinent. - : The pt / caregiver states he / she is not on anticoagulants. Home medication list is obtained from the patient, Note Medications verified by [employer] external history and confirmed by patient. 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 11 in. (149.86 cm); 03/31 02:17 BP 155 / 90; Pulse 89; Resp 20; Pulse Ox 99% ; Pain 9/10; mas 05:07 BP 125 / 78; Pulse 85; Resp 16; Temp 95.8(T); Pulse Ox 96% on R/A; Pain 0/10; slm 11:00 BP 151 / 108; Pulse 108; Resp 20; Temp 99.5(TE); Pulse Ox 98% on R/A; Pain 0/10; jc4 12:23 BP 165 / 94; Pulse 104; Resp 20; Pulse Ox 98% on R/A; jc4 14:58 BP 161 / 98; Pulse 101; Resp 17; Temp 99(TE); Pulse Ox 97% on R/A; pjf 03/30 22:00 Body Mass Index 23.63 (53.07 kg, 149.86 cm) mas MDM: 03/30 22:29 Consult PFS/PSA/Treating Inspector ordered. ke 22:29 Consult PFS/PSA/Treating Inspector: Patient's case requires discussion with on-call Psychiatrist ordered. 22:29 PSA/PFS to call Nursing Hand Launderer, to enter patient data on [place] if patient ke involuntarily admitted or transferred for SI or HI ordered. 22:29 Confirm accurate psychiatric medication list and times of last dosage ordered. ke 22:29 Detain Pt Until Medically/PFS Cleared ordered. ke 22:30 Acetaminophen Level Ordered. EDMS 22:30 Basic Metabolic Profile Ordered. EDMS 22:30 Complete Blood Count Ordered. EDMS 22:30 Drug Eval Toxicology ED Only Ordered. EDMS 22:30 Ethyl Alcohol (ethanol) Ordered. EDMS 22:30 HCG,Serum Qualitative Ordered. EDMS 22:30 Liver Profile Ordered. EDMS 22:30 Salicylate Level Ordered. EDMS 22:30 Thyroid Stimulating Hormone Ordered. EDMS 22:41 Nicotine Patch 21 mg/24 hr 1 applic Transdermal once ordered. ke 23:03 Acetaminophen Level Reviewed. ke 23:03 Basic Metabolic Profile Reviewed. ke 23:03 Complete Blood Count Reviewed. ke 23:03 Ethyl Alcohol (ethanol) Reviewed. ke 23:03 Liver Profile Reviewed. ke 23:03 Salicylate Level Reviewed. ke 23:03 Drug Eval Toxicology ED Only Reviewed. ke 23:03 HCG,Serum Qualitative Reviewed. ke 23:03 Thyroid Stimulating Hormone Reviewed. ke 23:09 [place] reporting: The patient poses a significant risk to self or others, and ke PSA/PFS has notified the Nursing Hand Launderer and he/she will complete the required data clerk. and the care was then provided by Initial Observation Assessment: The working diagnosis being considered, that nessecitates further evaluation and/or treatrment, includes etoh intoxication with suicidal ideation. 03/31 02:27 GI Cocktail - (Alum-Mag Hydroxide-Simeth 30 ml, Lidocaine 10 ml, Hyoscyamine 10 ml) PO mm11 once; Pre-mixed 50mL unit dose ordered. 02:30 Oxazepam 30 mg PO once ordered. mm11 04:26 REGULAR DIET PLASTIC WYATT+DIET ordered. EDMS 08:44 Financial registration complete. gb 09:44 [facility] Payment Agreement was scanned into [employer] and attached to record. gb 10:33 Consult PFS/PSA/Treating Inspector complete. rb 11:03 Oxazepam 30 mg PO once ordered. jc4 11:08 REGULAR DIET PLASTIC WYATT+DIET ordered. EDMS 12:34 hydrOXYzine 25 mg PO once ordered. jc4 14:07 Admit to [facility]: ordered. EDMS 14:12 [facility] Legal paperwork was scanned into [employer] and attached to record. ml4 02 18:09 T-Sheet-- Draft Copy was scanned into [employer] and attached to record. kf3 Administered Medications: 03/30 23:08 Drug: Nicotine 1 applic [nicotine 21 mg/24 hr daily transdermal patch (1 patches)] sl Route: Transdermal; Site: left upper arm; 03/31 02:37 Drug: GI Cocktail - (Alum-Mag Hydroxide-Simeth Suspension 225 mg-200 mg-25 mg/5 mL 30 slm ml, Lidocaine Liquid 2 % 10 ml, Hyoscyamine Liquid 10 ml) Route: PO; 03:51 Follow up: Response: Nausea is decreased sl 02:37 Drug: Oxazepam 30 mg [oxazepam 15 mg capsule (2 caps)] Route: PO; sl 03:51 Follow up: Response: Anxiety is improved [facility] 11:07 Drug: Oxazepam 30 mg [oxazepam 15 mg capsule (2 caps)] Route: PO; jc4 12:23 Follow up: BP 165 / 94; Pulse 104 bpm; Resp 20 bpm; Pulse Ox 98% RA jc4 12:39 Drug: hydrOXYzine 25 mg [hydroxyzine HCl 25 mg tablet (1 tabs)] Route: PO; jc4 Signatures: Dispatcher [employer] EDKairssa Donnelly MD MD ml Gabe, Marine, PSA PSA rb Gila, Kristal, Reg Reg gb Kyle Benitez, OIL BURNER OIL BURNER Dede Cook, PSA PSA ml4 Tony Cramer, DO DO mm11 Lanre Diaz, Reg Reg kf3 Cyndie Telles RN RN jc4 Vandana Valerio RN RN ttb Bridget Bailey LPN The chart was reviewed and I authenticate all verbal orders and agree with the evaluation and treatment provided.Corrections: (The following items were deleted from the chart) 09:39 03/30 22:21 Home Meds: Omeprazole Oral once daily; [facility] jc4 03/31 09:39 02 22:21 Home Meds: "depression meds" daily; [facility] jc4 : 03/31 09:44 [facility] Payment Agreement 04/01 18:09 T-Sheet-- Draft Copy kf3 Chart Complete MTDD
--- NOTE | 2016-04-02 16:02 | EDDOCDS ---
Physician Documentation [facility] Name: Amee Newman Age: 55 yrs Sex: Female : 1960 Arrival Date: 03/30/2016 Time: 21:53 Bed OBSERVATION Private MD: Disposition: 03/31/16 11:55 Hospitalization ordered by Aki Worthington for Inpatient Admission. Preliminary diagnosis are Suicidal ideations, Alcohol abuse counseling and surveillance, Alcohol abuse, Alcohol abuse with intoxication, uncomplicated. - Bed requested for Admit. - Status is Inpatient Admission. jc4 - Condition is Stable. - Problem is new. - Symptoms are unchanged. Historical: - Allergies: no known allergies; - Home Meds: 1. omeprazole 40 mg oral cpDR 1 cap 2 times per day (Last dose: 03/30/2016 09:00) 2. duloxetine 60 mg Oral cpDR 1 cap once daily (Last dose: 03/30/2016 09:00) 3. hydroxyzine HCl 25 mg Oral tab 1 tab 4 times per day as needed (Last dose: 03/29/2016) 4. Carafate 100 mg/mL Oral susp 10 mL 4 times per day (Last dose: 03/30/2016 19:00) 5. ferrous sulfate 325 mg (65 mg iron) Oral tab 325 mg twice a day (Last dose: Unknown) 6. Vitamin D Oral 50,000 unit monthly (Last dose: 02/2016) - PMHx: Depression; - PSHx: Gastric Bypass; Cholecystectomy; Adenoidectomy; Tonsillectomy; left knee surgery; - Social history: Smoking status: Patient uses tobacco products, current every day smoker. Patient uses alcohol on a daily basis. Patient/guardian denies using street drugs, No barriers to communication noted, The patient speaks fluent Palestinian, Speaks appropriately for age. - Family history: Not pertinent. - : The pt / caregiver states he / she is not on anticoagulants. Home medication list is obtained from the patient, Note Medications verified by [employer] external history and confirmed by patient. 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 11 in. (149.86 cm); 03/31 02:17 BP 155 / 90; Pulse 89; Resp 20; Pulse Ox 99% ; Pain 9/10; mas 05:07 BP 125 / 78; Pulse 85; Resp 16; Temp 95.8(T); Pulse Ox 96% on R/A; Pain 0/10; slm 11:00 BP 151 / 108; Pulse 108; Resp 20; Temp 99.5(TE); Pulse Ox 98% on R/A; Pain 0/10; jc4 12:23 BP 165 / 94; Pulse 104; Resp 20; Pulse Ox 98% on R/A; jc4 14:58 BP 161 / 98; Pulse 101; Resp 17; Temp 99(TE); Pulse Ox 97% on R/A; pjf 03/30 22:00 Body Mass Index 23.63 (53.07 kg, 149.86 cm) mas MDM: 03/30 22:29 Consult PFS/PSA/Final Inspector ordered. ke 22:29 Consult PFS/PSA/Final Inspector: Patient's case requires discussion with on-call Psychiatrist ordered. 22:29 PSA/PFS to call Nursing Edge Setter, to enter [place] data [place] if patient ke involuntarily admitted or transferred for SI or HI ordered. 22:29 Confirm accurate psychiatric medication list and times of last dosage ordered. ke 22:29 Detain Pt Until Medically/PFS Cleared ordered. ke 22:30 Acetaminophen Level Ordered. EDMS 22:30 Basic Metabolic Profile Ordered. EDMS 22:30 Complete Blood Count Ordered. EDMS 22:30 Drug Eval Toxicology ED Only Ordered. EDMS 22:30 Ethyl Alcohol (ethanol) Ordered. EDMS 22:30 HCG,Serum Qualitative Ordered. EDMS 22:30 Liver Profile Ordered. EDMS 22:30 Salicylate Level Ordered. EDMS 22:30 Thyroid Stimulating Hormone Ordered. EDMS 22:41 Nicotine Patch 21 mg/24 hr 1 applic Transdermal once ordered. ke 23:03 Acetaminophen Level Reviewed. ke 23:03 Basic Metabolic Profile Reviewed. ke 23:03 Complete Blood Count Reviewed. ke 23:03 Ethyl Alcohol (ethanol) Reviewed. ke 23:03 Liver Profile Reviewed. ke 23:03 Salicylate Level Reviewed. ke 23:03 Drug Eval Toxicology ED Only Reviewed. ke 23:03 HCG,Serum Qualitative Reviewed. ke 23:03 Thyroid Stimulating Hormone Reviewed. ke 23:09 [place] reporting: The patient poses a significant risk to self or others, and ke PSA/PFS has notified the Nursing Edge Setter and he/she will complete the required senior data architect. and the care was then provided by Initial Observation Assessment: The working diagnosis being considered, that nessecitates further evaluation and/or treatrment, includes etoh intoxication with suicidal ideation. 03/31 02:27 GI Cocktail - (Alum-Mag Hydroxide-Simeth 30 ml, Lidocaine 10 ml, Hyoscyamine 10 ml) PO mm11 once; Pre-mixed 50mL unit dose ordered. 02:30 Oxazepam 30 mg PO once ordered. mm11 04:26 REGULAR DIET PLASTIC WYATT+DIET ordered. EDMS 08:44 Financial registration complete. gb 09:44 [facility] Payment Agreement was scanned into [employer] and attached to record. gb 10:33 Consult PFS/PSA/Final Inspector complete. rb 11:03 Oxazepam 30 mg PO once ordered. jc4 11:08 REGULAR DIET PLASTIC WYATT+DIET ordered. EDMS 12:34 hydrOXYzine 25 mg PO once ordered. jc4 14:07 Admit to [facility]: ordered. EDMS 14:12 [facility] Legal paperwork was scanned into [employer] and attached to record. ml4 02 18:09 T-Sheet-- Draft Copy was scanned into [employer] and attached to record. kf3 Administered Medications: 03/30 23:08 Drug: Nicotine 1 applic [nicotine 21 mg/24 hr daily transdermal patch (1 patches)] sl Route: Transdermal; Site: left upper arm; 03/31 02:37 Drug: GI Cocktail - (Alum-Mag Hydroxide-Simeth Suspension 225 mg-200 mg-25 mg/5 mL 30 slm ml, Lidocaine Liquid 2 % 10 ml, Hyoscyamine Liquid 10 ml) Route: PO; 03:51 Follow up: Response: Nausea is decreased sl 02:37 Drug: Oxazepam 30 mg [oxazepam 15 mg capsule (2 caps)] Route: PO; sl 03:51 Follow up: Response: Anxiety is improved [facility] 11:07 Drug: Oxazepam 30 mg [oxazepam 15 mg capsule (2 caps)] Route: PO; jc4 12:23 Follow up: BP 165 / 94; Pulse 104 bpm; Resp 20 bpm; Pulse Ox 98% RA jc4 12:39 Drug: hydrOXYzine 25 mg [hydroxyzine HCl 25 mg tablet (1 tabs)] Route: PO; jc4 Signatures: Dispatcher [employer] EDKarissa Donnelly MD MD ml Gabe, Marine, PSA PSA rb Gila, Kristal, Reg Reg gb Kyle Benitez, INTEGRATED CIRCUIT IC LAYOUT DESIGNER INTEGRATED CIRCUIT IC LAYOUT DESIGNER Dede Cook, PSA PSA ml4 Tony Cramer, DO DO mm11 Lanre Diaz, Reg Reg kf3 Cyndie Telles RN RN jc4 Vandana Valerio RN RN ttb Bridget Bailey LPN The chart was reviewed and I authenticate all verbal orders and agree with the evaluation and treatment provided.Corrections: (The following items were deleted from the chart) 09:39 03/30 22:21 Home Meds: Omeprazole Oral once daily; [facility] jc4 03/31 09:39 02 22:21 Home Meds: "depression meds" daily; [facility] jc4 : 03/31 09:44 [facility] Payment Agreement 04/01 18:09 T-Sheet-- Draft Copy kf3 Chart Complete MTDD
--- NOTE | 2016-04-02 17:04 | ECGEPIP ---
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 Electronically Signed On 04-02-2016 17:03:49 EST by Dylan Wong
[2016-04-02 18:00] VITALS: BP 110/70
[2016-04-02 22:52] VITALS: BP 118/78
[2016-04-03] MEDS: OXAZEPAM 15 MG CAP PO SCH ×4 (06:18→17:03)
[2016-04-03] MEDS: SUCRALFATE SUSP 1GM/10ML UD PO SCH ×4 (06:27→19:38)
[2016-04-03 07:13] VITALS: BP 139/81
[2016-04-03 09:05] VITALS: BP 139/81
[2016-04-03] MEDS: FOLIC ACID 1 MG TAB PO SCH (09:44)
[2016-04-03] MEDS: THIAMINE 100 MG TAB PO SCH (09:44)
[2016-04-03] MEDS: DULoxetine 30 MG CAP (CYMBALTA) PO SCH (09:44)
[2016-04-03] MEDS: FERROUS SULFATE 325MG TAB PO SCH ×2 (09:44→19:38)
[2016-04-03] MEDS: MULTIVITAMINS/MINERALS THERAP 1 TAB PO SCH (09:44)
[2016-04-03] MEDS: OMEPRAZOLE 20 MG CAP PO SCH ×2 (09:44→19:38)
[2016-04-03] MEDS: NICOTINE 21MG/24HR 1 EA TRANSDERMAL TD SCH (09:47)
[2016-04-03 11:29] VITALS: BP 108/76
[2016-04-03 18:00] VITALS: BP 117/71
[2016-04-03 18:25] VITALS: BP 117/71
[2016-04-03] MEDS: traZODone 50 MG TAB PO PRN (21:07)
--- NOTE | 2016-04-03 22:08 | IPNPDOC ---
[facility] Progress Note Progress Note DATE OF SERVICE: 04/03/16 History: Print Finisher met with patient today to assess treatment progress on inpatient unit. Patient is calm and cooperative, engages well for assessment purposes, reports experiencing anxiety 7/10, depression 5/10, denies suicidal and homicidal ideation, denies audiovisual hallucinations, and denies urge to engage in self-injurious behavior. Patient denies history of suicide attempt, notes she has only made suicidal statements when intoxicated, indicates she has never possessed plan or intention to harm or kill self or others. Patient indicates she had period of sobriety up until she quit her job due to "stress," notes she then relapsed on alcohol. Patient indicates her sleep has improved, has been taking trazodone at night, uses Serax intermittently to address withdrawal symptoms, currently denies symptoms of craving or withdrawal, remains on withdrawal protocol. Patient is currently taking Cymbalta 60 mg per day with partial effect. Patient and show card writer speak at length today regarding the appropriateness of inpatient alcohol treatment, patient declines indicating she feels she needs to be an outpatient due to her daughter requiring assistance with childcare, adds that her mother is currently taking care of some of her daughter's children due to patient not being available to assist. Patient indicates energy level is improving, denies challenges with concentration, indicates appetite is also stabilizing. Patient informs show card writer she vomited 1 today and notes this is an improvement over the last couple days during which she vomited 2-3 times per day. Patient indicates she has history of gastric bypass, and was taking her medications with water after meals, notes medication dosing times have changed and this has reduced vomiting symptoms. Patient indicates she has a history of taking Cymbalta 90 mg per day while attending alcohol rehabilitation for 28 days, indicates she initially experienced improvement to mood but feels medication then became partially effective. Patient adds she took Prozac in the past with poor effect. Patient does experience chronic pain related to degenerative disc disease, adds she has taken hydroxyzine in the past as needed to address symptoms of anxiety, indicates medication was not effective. VITAL SIGNS: See below NEW TEST RESULTS: 04/02/16 EKG sinus rhythm CURRENT MEDICATIONS: See below. MENTAL STATUS EXAMINATION: Patient is 55-year-old female, Patient presents with fair personal hygiene, is dressed in hospital clothing, makes good eye contact, steady gait, exhibits no psychomotor retardation or agitation today, appears stated age, engaged, calm and cooperative with interview. Speech: Is of normal rate, rhythm, volume, spontaneous, coherent Language skills are intact. Thought processes: Clear, goal-directed Thought content: Rational. Abstract reasoning, and computation: Appears intact Description of associations: Intact. Description of abnormal or psychotic thoughts: Patient denies hallucinations, delusions, preoccupation with violence, homicidal or suicidal ideation, and obsessions]. Judgment: poor Insight: poor Orientation to time, place and person. Recent and remote memory: Immediate, short-term and long-term memory is intact Attention span and concentration: Within normal limits. Language: Normal. Fund of knowledge: Adequate. Mood: depressed. No agitation or lability noted Affect: Constricted, congruent with affect ASSESSMENT: Unspecified depressive disorder. Alcohol use disorder. Alcohol withdrawal. Required alcohol withdrawal protocol and meds Rule out major depressive disorder. Rule out alcohol induced mood disorder (depression). Patient indicates when prepared for discharge she would like to turn to home with boyfriend. Patient indicates boyfriend drinks very little noting, "he has practically quit." Patient states [facility] and loud will, indicates she is also willing to participate in AA. Patient is declining referral to inpatient alcohol treatment at this time, is strongly recommended to consider inpatient treatment. MANAGEMENT PLAN: Continue alcohol w/d monitoring protocol. Taper Serax from 30mg q6hr for alcohol w/d protocol to 15mg po q6hr, with plan to continue taper to off prior to d/c. Continue current psychotropic regimen as written. Patient reporting benefit on current regimen. Maintain safety precautions. Patient to attend groups and participate in unit programming to develop coping strategies. Patient to follow up with PCM upon discharge TIME SPENT: 35 minutes Vital Signs Vital Signs Date Time Temp Pulse Resp B/P Pulse Ox O2 Delivery O2 Flow Rate FiO2 04/03/16 18:25 87 117/71 04/03/16 18:00 98.8 16 04/02/16 18:00 Room Air 03/31/16 15:37 98 Current Medications Current Medications Acetaminophen (Tylenol Tab) 650 mg Q6HP PRN PO PAIN / FEVER Last administered on 04/01/16t 21:33; Start 04/01/16 at 11:15; Stop 05/01/16 at 11:14 Acetaminophen (Tylenol Tab) 1,000 mg QHS PRN PO PAIN / FEVER; Start 03/31/16 at 18:30; Stop 04/01/16 at 11:18; Status DC Al Hydrox/Mg Hydrox/Simethicone (Mylanta) 30 ml Q4HP PRN PO HEARTBURN/ INDIGESTION; Start 03/31/16 at 18:15; Stop 04/30/16 at 18:14 Diphenhydramine HCl (Benadryl) 50 mg QHS PRN PO INSOMNIA; Start 03/31/16 at 18: 30; Stop 04/01/16 at 11:27; Status DC Duloxetine HCl (Cymbalta) 60 mg DAILY PO Last administered on 04/03/16 09:44; Start 04/01/16 at 09:00; Stop 05/01/16 at 08:59 Ferrous Sulfate (Ferrous Sulfate) 325 mg BID PO Last administered on 04/03/16 19:38; Start 03/31/16 at 21:00; Stop 04/30/16 at 20:59 Folic Acid (Folic Acid) 1 mg DAILY PO Last administered on 04/03/16 09:44; Start 04/01/16 at 09:00; Stop 05/01/16 at 08:59 Home Med (Med Rec Complete!) ASDIRECTED XX ; Start 03/31/16 at 13:00; Stop 01/04 at 13:15; Status DC Hydroxyzine HCl (Atarax) 25 mg QIDP PRN PO anxiety Last administered on 09:34; Start 03/31/16 at 18:30; Stop 04/01/16 at 11:27; Status DC Magnesium Hydroxide (Milk Of Magnesia) 30 ml DAILYPRN PRN PO CONSTIPATION; Start 03/31/16 at 18:15; Stop 04/30/16 at 18:14 Multivitamins (Theragram-M) 1 tab DAILY PO Last administered on 04/03/16 09:44 ; Start 04/01/16 at 09:00; Stop 05/01/16 at 08:59 Nicotine (Nicoderm Cq 21mg) 1 patch DAILY TD Last administered on 04/03/16 09: 47; Start 03/31/16 at 09:00; Stop 04/30/16 at 08:59 Omeprazole (PriLOSEC) 40 mg BID PO Last administered on 04/03/16 19:38; Start 03/31/16 at 21:00; Stop 04/30/16 at 20:59 Oxazepam (Serax) 15 mg Q6H PO Last administered on 04/03/16 17:03; Start 04/03 at 12:00; Stop 04/10/16 at 11:59 Oxazepam (Serax) 30 mg Q6H PO Last administered on 04/03/16 06:18; Start 04/01 at 12:00; Stop 04/03/16 at 08:01; Status DC Oxazepam (Serax) 30 mg Q8H PO Last administered on 04/01/16 06:12; Start 03/31 at 22:00; Stop 04/01/16 at 11:15; Status DC Sucralfate (Carafate) 1 gm ACHS PO Last administered on 04/03/16 19:38; Start 03/31/16 at 21:00; Stop 04/30/16 at 20:59 Thiamine HCl (Thiamine HCl) 100 mg BID PO Last administered on 04/03/16 09:44 ; Start 03/31/16 at 21:00; Stop 04/03/16 at 12:00; Status DC Trazodone HCl (Desyrel) 50 mg QHSP PRN PO INSOMNIA Last administered on 21:07; Start 03/31/16 at 18:15; Stop 04/30/16 at 18:14 Allergies Coded Allergies: No Known Allergies (Unverified , 07/23/12) Jennie Sher Apr 03, 2016 22:08
[2016-04-04] MEDS: OXAZEPAM 15 MG CAP PO SCH ×5 (06:13→23:54)
[2016-04-04] MEDS: SUCRALFATE SUSP 1GM/10ML UD PO SCH ×4 (06:31→21:24)
[2016-04-04 06:43] VITALS: BP 135/78
[2016-04-04] MEDS: FERROUS SULFATE 325MG TAB PO SCH ×2 (08:54→21:24)
[2016-04-04] MEDS: OMEPRAZOLE 20 MG CAP PO SCH ×2 (08:54→21:24)
[2016-04-04] MEDS: MULTIVITAMINS/MINERALS THERAP 1 TAB PO SCH (08:54)
[2016-04-04] MEDS: DULoxetine 30 MG CAP (CYMBALTA) PO SCH (08:54)
[2016-04-04] MEDS: NICOTINE 21MG/24HR 1 EA TRANSDERMAL TD SCH (08:54)
[2016-04-04] MEDS: FOLIC ACID 1 MG TAB PO SCH (08:54)
[2016-04-04 09:17] VITALS: BP 135/78
--- NOTE | 2016-04-04 15:03 | IPNPDOC ---
[facility] Progress Note Progress Note DATE OF SERVICE: 04/04/16 History: Technology Trainer met with patient today to assess treatment progress on inpatient unit. Patient is calm and cooperative, engages well for assessment purposes, reports experiencing anxiety 4/10, depression 0/10, denies suicidal and homicidal ideation, denies audiovisual hallucinations, and denies urge to engage in self-injurious behavior. Patient denies history of suicide attempt, reiterates today she is only made suicidal statements with the influence of alcohol, denies ever having plan or intent to harm self adding, "I would never hurt myself I have grandchildren." Patient today informs screen writer that her current medication regimen is effective and denies need for dosing adjustment, denies medication side effects. Patient and screen writer again speak at length today regarding patient's need for inpatient alcohol abuse treatment, patient again declines inpatient treatment stating she doesn't want to be away from family and she wants to look for a job. Patient indicates energy level is improving, denies challenges with concentration, indicates appetite is also stabilizing. Patient informs screen writer she vomited 1 today aftre breakfast, attributes to "eating too much and drinking a lot of milk." Patient notes symptoms continue to improve over past couple days and reminds screen writer that she has a history of gastric bypass, and was taking her medications with water after meals, notes medication dosing times have changed and this has reduced vomiting symptoms. Patient informs screen writer she was scheduled for follow-up appointment log hooker last Saturday but missed appointment, is aware she will need to reschedule follow-up appointment post discharge from hospital. Patient denies symptoms of physical pain at time of interaction. Patient informs screen writer she does not have contact with her grandchildren when intoxicated, notes grandchildren are ages 13 and 17, and grandchildren leave patient's home the patient was under the influence of alcohol. VITAL SIGNS: See below NEW TEST RESULTS: Labs on admission indicate reduced and 9, total protein, albumin, AGR, and amylase. Labs elevated on admission indicate elevated AST and alkaline phosphatase. 04/02/16 EKG sinus rhythm UDS on admission negative HCG negative on admission BAL 0.409 at time of admission CURRENT MEDICATIONS: See below. MENTAL STATUS EXAMINATION: Patient is 55-year-old female, Patient presents with fair personal hygiene, is dressed in hospital clothing, makes good eye contact, steady gait, exhibits no psychomotor retardation or agitation today, appears stated age, is engageable, is cooperative with interview. Speech: Is of normal rate, rhythm, volume, spontaneous, coherent Language skills are intact. Thought processes: Clear, goal-directed Thought content: Rational. Abstract reasoning, and computation: Appears intact Description of associations: Intact. Description of abnormal or psychotic thoughts: Patient denies hallucinations, delusions, preoccupation with violence, homicidal or suicidal ideation, and obsessions]. Judgment: poor Insight: poor Orientation to time, place and person. Recent and remote memory: Immediate, short-term and long-term memory is intact Attention span and concentration: Within normal limits. Language: Normal. Fund of knowledge: Adequate. Mood: Less depressed, remains anxious and "shaky" at times. No agitation or lability noted Affect: Constricted, congruent with affect ASSESSMENT: Unspecified depressive disorder. Alcohol use disorder. Alcohol withdrawal. Required alcohol withdrawal protocol and meds Rule out major depressive disorder. Rule out alcohol induced mood disorder (depression). Patient is currently denying adjustments to psychotropic medications, indicating they're working well and she denies medication side effects. Patient is currently utilizing Serax 15 mg approximately 4 times per day, indicates she feels prepared to continue taper in preparation for discharge. Patient states when prepared for discharge she would like to turn to home with boyfriend. Patient minimizes boyfriend's alcohol consumption reiterating, "he has practically quit." Patient states she would like to attend [facility] outpatient services and outpatient mental health services and medication management through [facility], adds she is also willing to participate in AA. Patient is declining referral to inpatient alcohol treatment at this time, patient is strongly encouraged to consider inpatient treatment. Patient has been informed that financial aid coordinator is attempting to obtain collateral information from patient's support system and arrange family meeting to discuss discharge planning. MANAGEMENT PLAN: Continue alcohol w/d monitoring protocol. Continue Serax taper with plan to taper off prior to d/c. Continue current psychotropic regimen as written. Patient reporting benefit on current regimen. Maintain safety precautions. Patient to attend groups and participate in unit programming to develop coping strategies. Patient to follow up with PCM and log hooker upon discharge TIME SPENT: 35 minutes Vital Signs Vital Signs Date Time Temp Pulse Resp B/P Pulse Ox O2 Delivery O2 Flow Rate FiO2 04/04/16 09:17 68 135/78 04/04/16 06:43 97.4 18 04/02/16 18:00 Room Air 03/31/16 15:37 98 Current Medications Current Medications Acetaminophen (Tylenol Tab) 650 mg Q6HP PRN PO PAIN / FEVER Last administered on 04/01/16 21:33; Start 04/01/16 at 11:15; Stop 05/01/16 at 11:14 Acetaminophen (Tylenol Tab) 1,000 mg QHS PRN PO PAIN / FEVER; Start 03/31/16 at 18:30; Stop 04/01/16 at 11:18; Status DC Al Hydrox/Mg Hydrox/Simethicone (Mylanta) 30 ml Q4HP PRN PO HEARTBURN/ INDIGESTION; Start 03/31/16 at 18:15; Stop 04/30/16 at 18:14 Diphenhydramine HCl (Benadryl) 50 mg QHS PRN PO INSOMNIA; Start 03/31/16 at 18: 30; Stop 04/01/16 at 11:27; Status DC Duloxetine HCl (Cymbalta) 60 mg DAILY PO Last administered on 04/04/16 08:54; Start 04/01/16 at 09:00; Stop 05/01/16 at 08:59 Ferrous Sulfate (Ferrous Sulfate) 325 mg BID PO Last administered on 04/04/16 08:54; Start 03/31/16 at 21:00; Stop 04/30/16 at 20:59 Folic Acid (Folic Acid) 1 mg DAILY PO Last administered on 04/04/16 08:54; Start 04/01/16 at 09:00; Stop 05/01/16 at 08:59 Home Med (Med Rec Complete!) ASDIRECTED XX ; Start 03/31/16 at 13:00; Stop 01/04 at 13:15; Status DC Hydroxyzine HCl (Atarax) 25 mg QIDP PRN PO anxiety Last administered on 09:34; Start 03/31/16 at 18:30; Stop 04/01/16 at 11:27; Status DC Magnesium Hydroxide (Milk Of Magnesia) 30 ml DAILYPRN PRN PO CONSTIPATION; Start 03/31/16 at 18:15; Stop 04/30/16 at 18:14 Multivitamins (Theragram-M) 1 tab DAILY PO Last administered on 04/04/16 08:54 ; Start 04/01/16 at 09:00; Stop 05/01/16 at 08:59 Nicotine (Nicoderm Cq 21mg) 1 patch DAILY TD Last administered on 04/04/16 08: 54; Start 03/31/16 at 09:00; Stop 04/30/16 at 08:59 Omeprazole (PriLOSEC) 40 mg BID PO Last administered on 04/04/16 08:54; Start 03/31/16 at 21:00; Stop 04/30/16 at 20:59 Oxazepam (Serax) 15 mg Q6H PO Last administered on 04/04/16 11:48; Start 04/03 at 12:00; Stop 04/10/16 at 11:59 Oxazepam (Serax) 30 mg Q6H PO Last administered on 04/03/16 06:18; Start 04/01 at 12:00; Stop 04/03/16 at 08:01; Status DC Oxazepam (Serax) 30 mg Q8H PO Last administered on 04/01/16 06:12; Start 03/31 at 22:00; Stop 04/01/16 at 11:15; Status DC Sucralfate (Carafate) 1 gm ACHS PO Last administered on 04/04/16 11:48; Start 03/31/16 at 21:00; Stop 04/30/16 at 20:59 Thiamine HCl (Thiamine HCl) 100 mg BID PO Last administered on 04/03/16 09:44 ; Start 03/31/16 at 21:00; Stop 04/03/16 at 12:00; Status DC Trazodone HCl (Desyrel) 50 mg QHSP PRN PO INSOMNIA Last administered on 21:07; Start 03/31/16 at 18:15; Stop 04/30/16 at 18:14 Allergies Coded Allergies: No Known Allergies (Unverified , 07/23/12) Jennie Sher Apr 04, 2016 15:03
[2016-04-04 18:00] VITALS: BP 109/70
[2016-04-04] MEDS: traZODone 50 MG TAB PO PRN (21:24)
[2016-04-05] MEDS: OXAZEPAM 15 MG CAP PO SCH ×3 (06:01→17:22)
[2016-04-05] MEDS: SUCRALFATE SUSP 1GM/10ML UD PO SCH ×4 (06:30→21:16)
[2016-04-05 07:00] VITALS: BP 119/72
[2016-04-05] MEDS: DULoxetine 30 MG CAP (CYMBALTA) PO SCH (08:54)
[2016-04-05] MEDS: OMEPRAZOLE 20 MG CAP PO SCH ×2 (08:54→21:17)
[2016-04-05] MEDS: NICOTINE 21MG/24HR 1 EA TRANSDERMAL TD SCH (08:54)
[2016-04-05] MEDS: FOLIC ACID 1 MG TAB PO SCH (08:55)
[2016-04-05] MEDS: MULTIVITAMINS/MINERALS THERAP 1 TAB PO SCH (08:55)
[2016-04-05] MEDS: FERROUS SULFATE 325MG TAB PO SCH ×2 (08:55→21:17)
--- NOTE | 2016-04-05 10:37 | IPNPDOC ---
[facility] Progress Note Progress Note DATE OF SERVICE: 04/05/16 History: Executive Vice President met with patient today to assess treatment progress on inpatient unit. Patient is calm and cooperative, engages well for assessment purposes, reports experiencing anxiety 2/10, depression 1/10, denies suicidal and homicidal ideation, denies audiovisual hallucinations, and denies urge to engage in self-injurious behavior. Patient reiterates today she never possessed intent to harm self or others stating, "I have no idea where the comment about the scissors came from and my boyfriend says he doesn't know either." Patient today informs automobile and property underwriter that her current medication regimen is effective and denies need for dosing adjustment, denies medication side effects. Patient and automobile and property underwriter again speak at length today regarding automobile and property underwriter's recommendation for inpatient alcohol abuse treatment, patient again declines inpatient treatment stating she doesn't want to be away from family and she wants to look for a job. Patient indicates energy level is improving, denies challenges with concentration, indicates appetite is also stabilizing. Patient reports improvement to sleep with use of trazodone, denies nightmares symptoms. Patient denies vomiting today, indicates she is able to better engage food intake and ability to digest. Patient remains aware she will need to reschedule follow-up appointment post discharge from hospital. Patient denies symptoms of physical pain at time of interaction. Patient reiterates she does not have contact with her grandchildren when intoxicated, notes grandchildren are ages 13 and 17, and grandchildren leave patient's home the patient was under the influence of alcohol. VITAL SIGNS: See below NEW TEST RESULTS: Labs on admission indicate reduced and 9, total protein, albumin, AGR, and amylase. Labs elevated on admission indicate elevated AST and alkaline phosphatase. 04/02/16 EKG sinus rhythm UDS on admission negative HCG negative on admission BAL 0.409 at time of admission CURRENT MEDICATIONS: See below. MENTAL STATUS EXAMINATION: Patient is 55-year-old female, Patient presents with improved personal hygiene, is dressed in hospital clothing, makes good eye contact, steady gait, exhibits no psychomotor retardation or agitation today, appears stated age, engaged, calm and cooperative with interview. Speech: Is of normal rate, rhythm, volume, spontaneous, coherent Language skills are intact. Thought processes: Clear, goal-directed Thought content: Rational. Abstract reasoning, and computation: Appears intact Description of associations: Intact. Description of abnormal or psychotic thoughts: Patient denies hallucinations, delusions, preoccupation with violence, homicidal or suicidal ideation, and obsessions]. Judgment: poor Insight: poor Orientation to time, place and person. Recent and remote memory: Immediate, short-term and long-term memory is intact Attention span and concentration: Within normal limits. Language: Normal. Fund of knowledge: Adequate. Mood: Less depressed and less anxious today. No agitation or lability noted Affect: Constricted, brightens at times, congruent with affect DIAGNOSES: Unspecified depressive disorder, alcohol use disorder, alcohol withdrawal, rule out major depressive disorder, rule out alcohol induced mood disorder (depression). ASSESSMENT: Patient is currently denying need for adjustment to psychotropic medications, indicating they're working well and she denies medication side effects, remains in agreement with Serax taper continuation. Patient states when prepared for discharge she would like to return to home with boyfriend. Patient continues to minimize boyfriend's alcohol consumption, is today able to verbalize seriousness of her recent drinking episode and states he feels very motivated to cease alcohol consumption. Patient denies suicidal and homicidal ideation and is able to verbalize how to access supportive services on unit if needed. Patient states she would like to attend [facility] rehabilitation outpatient services and outpatient mental health services and medication management through [facility], adds she is also willing to participate in AA. Patient is declining referral to inpatient alcohol treatment at this time, patient is again strongly encouraged to consider inpatient treatment. Patient has been informed that key account coordinator is attempting to obtain collateral information from patient's support system and arrange family meeting to discuss discharge planning. MANAGEMENT PLAN: Continue alcohol w/d monitoring protocol. Taper Serax from 15 mg po q6hr for alcohol w/d protocol to 15 mg po q8hr, with plan to continue taper to off prior to d/c. Continue current psychotropic regimen as written. Patient reporting benefit on current regimen. Maintain safety precautions. Patient to attend groups and participate in unit programming to develop coping strategies. Encourage patient and family/support group to participate in the discharge process to ensure safe and effective discharge planning Patient to follow up with PCM and shear tender upon discharge TIME SPENT: 35 minutes Vital Signs Vital Signs Date Time Temp Pulse Resp B/P Pulse Ox O2 Delivery O2 Flow Rate FiO2 04/05/16 07:00 96.9 66 20 119/72 04/02/16 18:00 Room Air 03/31/16 15:37 98 Current Medications Current Medications Acetaminophen (Tylenol Tab) 650 mg Q6HP PRN PO PAIN / FEVER Last administered on 04/01/16 21:33; Start 04/01/16 at 11:15; Stop 05/01/16 at 11:14 Acetaminophen (Tylenol Tab) 1,000 mg QHS PRN PO PAIN / FEVER; Start 03/31/16 at 18:30; Stop 04/01/16 at 11:18; Status DC Al Hydrox/Mg Hydrox/Simethicone (Mylanta) 30 ml Q4HP PRN PO HEARTBURN/ INDIGESTION; Start 03/31/16 at 18:15; Stop 04/30/16 at 18:14 Diphenhydramine HCl (Benadryl) 50 mg QHS PRN PO INSOMNIA; Start 03/31/16 at 18: 30; Stop 04/01/16 at 11:27; Status DC Duloxetine HCl (Cymbalta) 60 mg DAILY PO Last administered on 04/05/16 08:54; Start 04/01/16 at 09:00; Stop 05/01/16 at 08:59 Ferrous Sulfate (Ferrous Sulfate) 325 mg BID PO Last administered on 04/05/16 08:55; Start 03/31/16 at 21:00; Stop 04/30/16 at 20:59 Folic Acid (Folic Acid) 1 mg DAILY PO Last administered on 04/05/16 08:55; Start 04/01/16 at 09:00; Stop 05/01/16 at 08:59 Home Med (Med Rec Complete!) ASDIRECTED XX ; Start 03/31/16 at 13:00; Stop 01/04 at 13:15; Status DC Hydroxyzine HCl (Atarax) 25 mg QIDP PRN PO anxiety Last administered on 09:34; Start 03/31/16 at 18:30; Stop 04/01/16 at 11:27; Status DC Magnesium Hydroxide (Milk Of Magnesia) 30 ml DAILYPRN PRN PO CONSTIPATION; Start 03/31/16 at 18:15; Stop 04/30/16 at 18:14 Multivitamins (Theragram-M) 1 tab DAILY PO Last administered on 04/05/16 08:55 ; Start 04/01/16 at 09:00; Stop 05/01/16 at 08:59 Nicotine (Nicoderm Cq 21mg) 1 patch DAILY TD Last administered on 04/05/16 08: 54; Start 03/31/16 at 09:00; Stop 04/30/16 at 08:59 Omeprazole (PriLOSEC) 40 mg BID PO Last administered on 04/05/16 08:54; Start 03/31/16 at 21:00; Stop 04/30/16 at 20:59 Oxazepam (Serax) 15 mg Q6H PO Last administered on 04/05/16 06:01; Start 04/03 at 12:00; Stop 04/10/16 at 11:59 Oxazepam (Serax) 30 mg Q6H PO Last administered on 04/03/16 06:18; Start 04/01 at 12:00; Stop 04/03/16 at 08:01; Status DC Oxazepam (Serax) 30 mg Q8H PO Last administered on 04/01/16 06:12; Start 03/31 at 22:00; Stop 04/01/16 at 11:15; Status DC Sucralfate (Carafate) 1 gm ACHS PO Last administered on 04/05/16 06:30; Start 03/31/16 at 21:00; Stop 04/30/16 at 20:59 Thiamine HCl (Thiamine HCl) 100 mg BID PO Last administered on 04/03/16 09:44 ; Start 03/31/16 at 21:00; Stop 04/03/16 at 12:00; Status DC Trazodone HCl (Desyrel) 50 mg QHSP PRN PO INSOMNIA Last administered on 21:24; Start 03/31/16 at 18:15; Stop 04/30/16 at 18:14 Allergies Coded Allergies: No Known Allergies (Unverified , 07/23/12) Jennie Sher Apr 05, 2016 10:37 Jennie Sher Apr 05, 2016 10:37
[2016-04-05 11:45] VITALS: BP 119/72
[2016-04-05] MEDS: ACETAMINOPHEN TAB 650MG DOSE (2X325MG) PO PRN (12:06)
[2016-04-05 13:45] VITALS: BP 123/78
[2016-04-05] MEDS: traZODone 50 MG TAB PO PRN (21:18)
[2016-04-06] MEDS: OXAZEPAM 15 MG CAP PO SCH ×4 (01:57→21:15)
[2016-04-06 06:17] VITALS: BP 129/78
[2016-04-06 06:18] VITALS: BP 129/78
[2016-04-06] MEDS: SUCRALFATE SUSP 1GM/10ML UD PO SCH ×4 (06:55→21:14)
[2016-04-06] MEDS: NICOTINE 21MG/24HR 1 EA TRANSDERMAL TD SCH (08:21)
[2016-04-06] MEDS: DULoxetine 30 MG CAP (CYMBALTA) PO SCH (08:22)
[2016-04-06] MEDS: OMEPRAZOLE 20 MG CAP PO SCH ×2 (08:22→21:14)
[2016-04-06] MEDS: MULTIVITAMINS/MINERALS THERAP 1 TAB PO SCH (08:22)
[2016-04-06] MEDS: FOLIC ACID 1 MG TAB PO SCH (08:22)
[2016-04-06] MEDS: FERROUS SULFATE 325MG TAB PO SCH ×2 (08:22→21:14)
[2016-04-06] MEDS ORDERED: OXAZEPAM 15 MG CAP PO PRN (11:30)
--- NOTE | 2016-04-06 11:44 | IPNPDOC ---
[facility] Progress Note Progress Note DATE OF SERVICE: 04/06/16 History: Kennel Hand met with patient today to assess treatment progress on inpatient unit. Patient is calm and cooperative, engages well for assessment purposes, reports experiencing anxiety 2/10, depression 1/10, denies suicidal and homicidal ideation, denies audiovisual hallucinations, and denies urge to engage in self-injurious behavior. Patient reiterates that her current medication regimen is effective and denies need for dosing adjustment, denies medication side effects. Patient indicates she is tolerating Serax taper well, is aware frequency of dosing has been reduced. Patient and sign writer hand again speak at length today regarding sign writer hand's recommendation for inpatient alcohol abuse treatment, patient again declines inpatient treatment stating she doesn't want to be away from family and she wants to look for a job. Patient indicates energy level is improving, denies challenges with concentration, indicates appetite is also stabilizing and she denies overeating and vomiting. Patient reports improvement to sleep with use of trazodone, denies nightmares symptoms. Patient remains aware she will need to reschedule follow-up appointment post discharge from hospital. Patient denies symptoms of physical pain at time of interaction. VITAL SIGNS: See below NEW TEST RESULTS: Labs on admission indicate reduced and 9, total protein, albumin, AGR, and amylase. Labs elevated on admission indicate elevated AST and alkaline phosphatase. 04/02/16 EKG sinus rhythm UDS on admission negative HCG negative on admission BAL 0.409 at time of admission CURRENT MEDICATIONS: See below. MENTAL STATUS EXAMINATION: Patient is 55-year-old female, Patient presents with improved personal hygiene, is dressed in own clothing, makes good eye contact, steady gait, exhibits no psychomotor retardation or agitation today, appears stated age, engaged, calm and cooperative with interview. Speech: Is of normal rate, rhythm, volume, spontaneous, coherent Language skills are intact. Thought processes: Clear, goal-directed Thought content: Rational. Abstract reasoning, and computation: Appears intact Description of associations: Intact. Description of abnormal or psychotic thoughts: Patient denies hallucinations, delusions, preoccupation with violence, homicidal or suicidal ideation, and obsessions]. Judgment: poor Insight: poor Orientation to time, place and person. Recent and remote memory: Immediate, short-term and long-term memory is intact Attention span and concentration: Within normal limits. Language: Normal. Fund of knowledge: Adequate. Mood: Less depressed and less anxious today. No agitation or lability noted Affect: Constricted, brightens at times, congruent with affect DIAGNOSES: Unspecified depressive disorder, alcohol use disorder, alcohol withdrawal, rule out major depressive disorder, rule out alcohol induced mood disorder (depression). ASSESSMENT: Patient continues to deny need for adjustment to psychotropic medications, indicates regimen is effective and denies medication side effects. Patient remains in agreement with Serax taper continuation in preparation for discharge, reiterates she does not feel she needs inpatient alcohol treatment and plans to discharge to home with boyfriend. Patient continues to minimize boyfriend's alcohol consumption, is increasingly able to verbalize seriousness of her recent drinking episode and states she remains motivated to cease alcohol consumption. Patient denies suicidal and homicidal ideation and is able to verbalize how to access supportive services on unit if needed. Patient states she would like to attend [facility] outpatient services and outpatient mental health services and medication management through [facility], adds she is also willing to participate in AA. Patient indicates she has taken naltrexone in past with good effect, agrees to obtain dosing information from leftover medication vial at home. Kennel Hand is informed that many area providers do not prescribe naltrexone, telecom coordinator has been asked to contact patient's future outpatient provider to verify that outpatient provider will prescribe naltrexone to patient after discharge from inpatient treatment. Patient is declining referral to inpatient alcohol treatment at this time, patient is again strongly encouraged to consider inpatient treatment. Patient has been informed that telecom coordinator is attempting to obtain collateral information from patient's support system and arrange family meeting to discuss discharge planning. MANAGEMENT PLAN: Continue alcohol w/d monitoring protocol. Taper Serax from 15 mg po q8hr for alcohol w/d protocol to 15 mg po BID, with plan to continue taper to 15 mg po q day on Saturday/Saturday (depending on patient use of medication) and then stop prior to d/c. Continue current psychotropic regimen as written. Patient reporting benefit on current regimen. Obtain naltrexone dosing information and confirm that outpatient provider is willing to continue prescribing after patient is discharged from Hospital Maintain safety precautions. Patient to attend groups and participate in unit programming to develop coping strategies. Encourage patient and family/support group to participate in the discharge process to ensure safe and effective discharge planning Patient to follow up with PCM and mobile nurse upon discharge TIME SPENT: 35 minutes Vital Signs Vital Signs Date Time Temp Pulse Resp B/P Pulse Ox O2 Delivery O2 Flow Rate FiO2 04/06/16 06:18 99.2 68 18 129/78 04/02/16 18:00 Room Air 03/31/16 15:37 98 Current Medications Current Medications Acetaminophen (Tylenol Tab) 650 mg Q6HP PRN PO PAIN / FEVER Last administered on 04/05/16 12:06; Start 04/01/16 at 11:15; Stop 05/01/16 at 11:14 Acetaminophen (Tylenol Tab) 1,000 mg QHS PRN PO PAIN / FEVER; Start 03/31/16 at 18:30; Stop 04/01/16 at 11:18; Status DC Al Hydrox/Mg Hydrox/Simethicone (Mylanta) 30 ml Q4HP PRN PO HEARTBURN/ INDIGESTION; Start 03/31/16 at 18:15; Stop 04/30/16 at 18:14 Diphenhydramine HCl (Benadryl) 50 mg QHS PRN PO INSOMNIA; Start 03/31/16 at 18: 30; Stop 04/01/16 at 11:27; Status DC Duloxetine HCl (Cymbalta) 60 mg DAILY PO Last administered on 04/06/16 08:22; Start 04/01/16 at 09:00; Stop 05/01/16 at 08:59 Ferrous Sulfate (Ferrous Sulfate) 325 mg BID PO Last administered on 04/06/16 08:22; Start 03/31/16 at 21:00; Stop 04/30/16 at 20:59 Folic Acid (Folic Acid) 1 mg DAILY PO Last administered on 04/06/16 08:22; Start 04/01/16 at 09:00; Stop 05/01/16 at 08:59 Home Med (Med Rec Complete!) ASDIRECTED XX ; Start 03/31/16 at 13:00; Stop 01/04 at 13:15; Status DC Hydroxyzine HCl (Atarax) 25 mg QIDP PRN PO anxiety Last administered on 09:34; Start 03/31/16 at 18:30; Stop 04/01/16 at 11:27; Status DC Magnesium Hydroxide (Milk Of Magnesia) 30 ml DAILYPRN PRN PO CONSTIPATION; Start 03/31/16 at 18:15; Stop 04/30/16 at 18:14 Multivitamins (Theragram-M) 1 tab DAILY PO Last administered on 04/06/16 08:22 ; Start 04/01/16 at 09:00; Stop 05/01/16 at 08:59 Nicotine (Nicoderm Cq 21mg) 1 patch DAILY TD Last administered on 04/06/16 08: 21; Start 03/31/16 at 09:00; Stop 04/30/16 at 08:59 Omeprazole (PriLOSEC) 40 mg BID PO Last administered on 04/06/16 08:22; Start 03/31/16 at 21:00; Stop 04/30/16 at 20:59 Oxazepam (Serax) 15 mg Q6H PO Last administered on 04/05/16 17:22; Start 04/03 at 12:00; Stop 04/05/16 at 19:38; Status DC Oxazepam (Serax) 15 mg Q8H PO ; Start 04/06/16 at 02:00; Stop 04/06/16 at 21:00 Oxazepam (Serax) 15 mg Q8HP PRN PO withdrawal symptoms; Start 04/06/16 at 11:30 ; Stop 04/07/16 at 11:30; Status UNV Oxazepam (Serax) 30 mg Q6H PO Last administered on 04/03/16 06:18; Start 04/01 at 12:00; Stop 04/03/16 at 08:01; Status DC Oxazepam (Serax) 30 mg Q8H PO Last administered on 04/01/16 06:12; Start 03/31 at 22:00; Stop 04/01/16 at 11:15; Status DC Sucralfate (Carafate) 1 gm ACHS PO Last administered on 04/06/16 06:55; Start 03/31/16 at 21:00; Stop 04/30/16 at 20:59 Thiamine HCl (Thiamine HCl) 100 mg BID PO Last administered on 04/03/16 09:44 ; Start 03/31/16 at 21:00; Stop 04/03/16 at 12:00; Status DC Trazodone HCl (Desyrel) 50 mg QHSP PRN PO INSOMNIA Last administered on t 21:18; Start 03/31/16 at 18:15; Stop 04/30/16 at 18:14 Allergies Coded Allergies: No Known Allergies (Unverified , 07/23/12) Jennie Sher Apr 06, 2016 11:44
[2016-04-06 18:00] VITALS: BP 119/72
[2016-04-06] MEDS: traZODone 50 MG TAB PO PRN (21:14)
[2016-04-07 06:54] VITALS: BP 138/83
[2016-04-07] MEDS: SUCRALFATE SUSP 1GM/10ML UD PO SCH ×4 (07:30→21:04)
[2016-04-07] MEDS: FERROUS SULFATE 325MG TAB PO SCH ×2 (08:36→21:04)
[2016-04-07] MEDS: FOLIC ACID 1 MG TAB PO SCH (08:36)
[2016-04-07] MEDS: MULTIVITAMINS/MINERALS THERAP 1 TAB PO SCH (08:36)
[2016-04-07] MEDS: DULoxetine 30 MG CAP (CYMBALTA) PO SCH (08:36)
[2016-04-07] MEDS: OMEPRAZOLE 20 MG CAP PO SCH ×2 (08:36→21:04)
[2016-04-07] MEDS: OXAZEPAM 15 MG CAP PO SCH ×2 (08:37→21:00)
[2016-04-07] MEDS: NICOTINE 21MG/24HR 1 EA TRANSDERMAL TD SCH (09:00)
[2016-04-07 12:04] VITALS: BP 125/64
[2016-04-07 18:00] VITALS: BP 128/74
[2016-04-07 20:00] VITALS: BP 126/68
[2016-04-07] MEDS: traZODone 50 MG TAB PO PRN (21:04)
[2016-04-08 06:26] VITALS: BP 152/76
[2016-04-08] MEDS: SUCRALFATE SUSP 1GM/10ML UD PO SCH ×4 (07:01→21:15)
[2016-04-08] MEDS: OMEPRAZOLE 20 MG CAP PO SCH ×2 (08:53→21:15)
[2016-04-08] MEDS: DULoxetine 30 MG CAP (CYMBALTA) PO SCH (08:53)
[2016-04-08] MEDS: FERROUS SULFATE 325MG TAB PO SCH ×2 (08:53→21:15)
[2016-04-08] MEDS: FOLIC ACID 1 MG TAB PO SCH (08:53)
[2016-04-08] MEDS: MULTIVITAMINS/MINERALS THERAP 1 TAB PO SCH (08:53)
[2016-04-08] MEDS: OXAZEPAM 15 MG CAP PO SCH ×2 (08:54→21:00)
[2016-04-08] MEDS: NICOTINE 21MG/24HR 1 EA TRANSDERMAL TD SCH (08:54)
[2016-04-08 12:34] VITALS: BP 124/72
[2016-04-08 18:00] VITALS: BP 128/89
[2016-04-08] MEDS: traZODone 50 MG TAB PO PRN (21:15)
[2016-04-09 06:42] VITALS: BP 117/62
[2016-04-09] MEDS: SUCRALFATE SUSP 1GM/10ML UD PO SCH ×4 (07:12→21:11)
[2016-04-09] MEDS: NICOTINE 21MG/24HR 1 EA TRANSDERMAL TD SCH (09:00)
[2016-04-09] MEDS: OXAZEPAM 15 MG CAP PO SCH (09:00)
[2016-04-09] MEDS: FOLIC ACID 1 MG TAB PO SCH (09:03)
[2016-04-09] MEDS: OMEPRAZOLE 20 MG CAP PO SCH ×2 (09:04→21:11)
[2016-04-09] MEDS: MULTIVITAMINS/MINERALS THERAP 1 TAB PO SCH (09:04)
[2016-04-09] MEDS: FERROUS SULFATE 325MG TAB PO SCH ×2 (09:04→21:11)
[2016-04-09] MEDS: DULoxetine 30 MG CAP (CYMBALTA) PO SCH (09:04)
--- NOTE | 2016-04-09 10:32 | IPNPDOC ---
[facility] Progress Note Progress Note DATE OF SERVICE: 04/09/16 HISTORY: Balance And Hairspring Assembler met with patient today to assess treatment progress on inpatient unit. Patient remains calm and cooperative, engages well for assessment purposes, denies experiencing anxiety or depression today, denies suicidal and homicidal ideation, denies audiovisual hallucinations, and denies urge to engage in self-injurious behavior. Patient reiterates that her current medication regimen is effective and denies need for dosing adjustment, denies medication side effects. Patient states she has not taken Serax X 4 days, denies symptoms of craving or withdrawal and further denies need for Naltrexone. Patient and junior technical writer again speak at length today regarding junior technical writer's recommendation for inpatient alcohol abuse treatment, patient again declines inpatient treatment stating she doesn't want to be away from family and she wants to look for a job. Patient indicates energy level is better, denies challenges with concentration, indicates appetite is also stabilizing and she denies overeating and vomiting. Patient reports improvement to sleep with use of trazodone, denies nightmares symptoms. Patient reports difficulty with sleep one night over weekend, notes she was provided with earplugs and sleep challenges were resolved. Patient remains aware she will need to reschedule follow-up appointment post discharge from hospital with snowboard instructor. Patient denies symptoms of physical pain at time of interaction. Patient is requesting discharge, is aware she is being evaluated for readiness for discharge Saturday or Saturday. VITAL SIGNS: See below NEW TEST RESULTS: Labs on admission indicate reduced and 9, total protein, albumin, AGR, and amylase. Labs elevated on admission indicate elevated AST and alkaline phosphatase. 04/02/16 EKG sinus rhythm UDS on admission negative HCG negative on admission BAL 0.409 at time of admission CURRENT MEDICATIONS: See below. MENTAL STATUS EXAMINATION: Patient is 55-year-old female, Patient presents with good personal hygiene, is dressed in own clothing, makes good eye contact, steady gait, exhibits no psychomotor retardation or agitation today, appears stated age, engaged, calm and cooperative with interview. Speech: Is of normal rate, rhythm, volume, spontaneous, coherent Language skills are intact. Thought processes: Clear, goal-directed Thought content: Rational. Abstract reasoning, and computation: Appears intact Description of associations: Intact. Description of abnormal or psychotic thoughts: Patient denies hallucinations, delusions, preoccupation with violence, homicidal or suicidal ideation, and obsessions]. Judgment: Fair, has improved during his stay Insight: Fair, has improved during stay Orientation to time, place and person. Recent and remote memory: Immediate, short-term and long-term memory is intact Attention span and concentration: Within normal limits. Language: Normal. Fund of knowledge: Adequate. Mood: "I feel pretty good." No indication of irritability or mood lability noted Affect: Mild constriction but brighter, congruent with mood DIAGNOSES: Unspecified depressive disorder, alcohol use disorder, alcohol withdrawal, rule out major depressive disorder, rule out alcohol induced mood disorder (depression). ASSESSMENT: Patient continues to deny need for adjustment to psychotropic medications, indicates regimen is effective and denies medication side effects. Patient has been refusing Serax and considers taper completes, denies symptoms of craving or withdrawal or anxiety related to cessation of alcohol use. Patient reiterates she does not feel she needs inpatient alcohol treatment and plans to discharge to home with boyfriend. Patient continues to minimize boyfriend's alcohol consumption but remains increasingly able to verbalize seriousness of her recent drinking episode and states she remains motivated to cease alcohol consumption. Patient denies suicidal and homicidal ideation and is able to verbalize how to access supportive services on unit if needed. Patient states she would like to attend [facility] outpatient services and outpatient mental health services and medication management through [facility], adds she also plans to attend AA meetings. Patient today denies interest in naltrexone, indicates she is experiencing no symptoms of withdrawal or craving, adds she feels "very motivated" to stop consuming alcohol. Patient is declining referral to inpatient alcohol treatment at this time, patient is again strongly encouraged to consider inpatient treatment. Patient has been informed that staffing coordinator is attempting to obtain collateral information from patient's support system and arrange family meeting to discuss discharge planning, as charged tentatively scheduled for Saturday or Saturday of this week. Patient indicates she will require an Rx for trazodone PRN at time of discharge, denies need for prescriptions for other psychotropic medications at discharge. MANAGEMENT PLAN: Discontinue alcohol w/d monitoring protocol and discontinue Serax taper Continue current psychotropic regimen as written. Patient reporting benefit on current regimen. Maintain safety precautions. Patient to attend groups and participate in unit programming to develop coping strategies. Encourage patient and family/support group to participate in the discharge process to ensure safe and effective discharge planning Patient to follow up with PCM and snowboard instructor upon discharge TIME SPENT: 25 minutes Vital Signs Vital Signs Date Time Temp Pulse Resp B/P Pulse Ox O2 Delivery O2 Flow Rate FiO2 04/09/16 06:42 99.4 57 18 117/62 Current Medications Current Medications Acetaminophen (Tylenol Tab) 650 mg Q6HP PRN PO PAIN / FEVER Last administered on 04/05/16 12:06; Start 04/01/16 at 11:15; Stop 05/01/16 at 11:14 Acetaminophen (Tylenol Tab) 1,000 mg QHS PRN PO PAIN / FEVER; Start 03/31/16 at 18:30; Stop 04/01/16 at 11:18; Status DC Al Hydrox/Mg Hydrox/Simethicone (Mylanta) 30 ml Q4HP PRN PO HEARTBURN/ INDIGESTION; Start 03/31/16 at 18:15; Stop 04/30/16 at 18:14 Diphenhydramine HCl (Benadryl) 50 mg QHS PRN PO INSOMNIA; Start 03/31/16 at 18: 30; Stop 04/01/16 at 11:27; Status DC Duloxetine HCl (Cymbalta) 60 mg DAILY PO Last administered on 04/09/16 09:04; Start 04/01/16 at 09:00; Stop 05/01/16 at 08:59 Ferrous Sulfate (Ferrous Sulfate) 325 mg BID PO Last administered on 04/09/16 09:04; Start 03/31/16 at 21:00; Stop 04/30/16 at 20:59 Folic Acid (Folic Acid) 1 mg DAILY PO Last administered on 04/09/16 09:03; Start 04/01/16 at 09:00; Stop 05/01/16 at 08:59 Home Med (Med Rec Complete!) ASDIRECTED XX ; Start 03/31/16 at 13:00; Stop 01/04 at 13:15; Status DC Hydroxyzine HCl (Atarax) 25 mg QIDP PRN PO anxiety Last administered on 09:34; Start 03/31/16 at 18:30; Stop 04/01/16 at 11:27; Status DC Magnesium Hydroxide (Milk Of Magnesia) 30 ml DAILYPRN PRN PO CONSTIPATION; Start 03/31/16 at 18:15; Stop 04/30/16 at 18:14 Multivitamins (Theragram-M) 1 tab DAILY PO Last administered on 04/09/16 09:04 ; Start 04/01/16 at 09:00; Stop 05/01/16 at 08:59 Nicotine (Nicoderm Cq 21mg) 1 patch DAILY TD Last administered on 04/06/16 08: 21; Start 03/31/16 at 09:00; Stop 04/30/16 at 08:59 Omeprazole (PriLOSEC) 40 mg BID PO Last administered on 04/09/16 09:04; Start 03/31/16 at 21:00; Stop 04/30/16 at 20:59 Oxazepam (Serax) 15 mg BID PO ; Start 04/07/16 at 09:00; Stop 04/14/16 at 08:59 Oxazepam (Serax) 15 mg Q6H PO Last administered on 04/05/16 17:22; Start 04/03 at 12:00; Stop 04/05/16 at 19:38; Status DC Oxazepam (Serax) 15 mg Q8H PO ; Start 04/06/16 at 02:00; Stop 04/06/16 at 11:38 ; Status DC Oxazepam (Serax) 15 mg Q8H PO ; Start 04/06/16 at 14:00; Stop 04/06/16 at 23:59 ; Status DC Oxazepam (Serax) 15 mg Q8HP PRN PO withdrawal symptoms; Start 04/06/16 at 11:30 ; Stop 04/06/16 at 11:38; Status DC Oxazepam (Serax) 30 mg Q6H PO Last administered on 04/03/16 06:18; Start 04/01 at 12:00; Stop 04/03/16 at 08:01; Status DC Oxazepam (Serax) 30 mg Q8H PO Last administered on 04/01/16 06:12; Start 03/31 at 22:00; Stop 04/01/16 at 11:15; Status DC Sucralfate (Carafate) 1 gm ACHS PO Last administered on 04/09/16 07:12; Start 03/31/16 at 21:00; Stop 04/30/16 at 20:59 Thiamine HCl (Thiamine HCl) 100 mg BID PO Last administered on 04/03/16 09:44 ; Start 03/31/16 at 21:00; Stop 04/03/16 at 12:00; Status DC Trazodone HCl (Desyrel) 50 mg QHSP PRN PO INSOMNIA Last administered on 21:15; Start 03/31/16 at 18:15; Stop 04/30/16 at 18:14 Allergies Coded Allergies: No Known Allergies (Unverified , 07/23/12) Jennie Sher Apr 09, 2016 10:32
[2016-04-09 18:00] VITALS: BP 127/71
[2016-04-09] MEDS: traZODone 50 MG TAB PO PRN (21:33)
[2016-04-10] MEDS: SUCRALFATE SUSP 1GM/10ML UD PO SCH ×2 (06:29→11:46)
[2016-04-10 06:35] VITALS: BP 162/88
[2016-04-10] MEDS: NICOTINE 21MG/24HR 1 EA TRANSDERMAL TD SCH (08:46)
[2016-04-10] MEDS: FOLIC ACID 1 MG TAB PO SCH (08:48)
[2016-04-10] MEDS: MULTIVITAMINS/MINERALS THERAP 1 TAB PO SCH (08:49)
[2016-04-10] MEDS: FERROUS SULFATE 325MG TAB PO SCH (08:49)
[2016-04-10] MEDS: OMEPRAZOLE 20 MG CAP PO SCH (08:49)
[2016-04-10] MEDS: DULoxetine 30 MG CAP (CYMBALTA) PO SCH (08:49)
[2016-04-10] MEDS ORDERED: DULO30CA PO (10:07)
[2016-04-10] MEDS ORDERED: TRAZO50TA PO (10:07)
[2016-04-10] MEDS ORDERED: OMEP20CA3 PO (10:22)
[2016-04-10] MEDS ORDERED: SUCR1SUS PO (10:22)
[2016-04-10] MEDS ORDERED: VITMTA PO (10:22)
[2016-04-10] MEDS ORDERED: FERR325T PO (10:22)
--- NOTE | 2016-04-11 05:17 | DSES ---
DATE OF ADMISSION: 03/31/2016 DATE OF DISCHARGE: 04/10/2016 HISTORY OF PRESENT ILLNESS: The following information is according to the initial evaluation of Dr. Worthington, his progress note, Jennie Sher, nurse practitioner's progress note and my own progress note. On 03/31/2016, Dr. Worthington wrote she is 55 years old. She lives with her boyfriend. They have been together for about 13 years. Patient has had two prior hospitalizations here, was last here 2-1/2 years ago, seen by Dr. Glaser. Please refer to his discharge summary for details related to the admission and the hospital stay. She says subsequent to that she had gone to [facility]. Says she completed it and then attended [facility] outpatient, says remained sober for about 2 years, felt improved in her mood and that she was not as depressed, though depression remained a factor. She felt her sleep improved for the most part. Says she picked up alcohol again a few months ago. She says that she was working and it was stressful and she thought she could have "just one drink," but that gradually became regular to the point where she was drinking heavily and daily. Apparently, her and her boyfriend had an argument a couple of days ago. She is not sure of the nature of the argument, what it was about and she expressed the wish to . Says her boyfriend decided to call her mother, who suggested that the patient be brought to the hospital. Police were called. She says she remembers being at home, thinking vaguely remembers being brought here. Has had blackouts in the past. Continues to have them. She says feels depressed. Says has continued taking her Cymbalta, which has been for a while at 60 mg daily. She is also on hydroxyzine 25 mg four times a day as needed for anxiety. Says felt hopeless, but denies that she has felt suicidal. LABORATORIES: At admission: CBC is unremarkable except hematocrit at 48.4 and MCV of 99.9. CMP showed sodium of 149, AST of 38, alkaline phosphatase of 126. The rest within normal limits. On 04/02/2016, her CMP showed an AST of 44, alkaline phosphatase of 147, total protein of 6.3, albumin of 3, amylase of 20. The rest of the CMP is within normal limits. Urine drug screen (UDS) was negative. Blood alcohol level was 0.4. HOSPITAL COURSE: Patient was admitted and started on oxazepam 30 mg every 8 hours tapering dose and also on thiamine, folic acid, and multivitamins as per detoxification protocol. She was also started on Cymbalta 60 mg by mouth daily. With the above medication, patient was stabilized. She improved slowly, but steadily. Patient had no complications during this hospital admission. By the end of the hospitalization, patient is motivated for treatment as outpatient. She stated that she is willing to followup recommendations. Patient is denying suicidal or homicidal ideation. There is no evidence of auditory or visual hallucination or delusions at the moment of discharge. Therefore, she is discharged in a stable condition on 04/10/2016. MEDICATIONS AT DISCHARGE: - Cymbalta 60 mg by mouth daily - trazodone 50 mg by mouth nightly as needed for insomnia MENTAL STATUS EXAMINATION AT DISCHARGE: Patient is dressed in casual clothes. Patient is calm and cooperative. Speech is clear, coherent with normal rate and is spontaneous. The patient has good eye contact. Mood is euthymic. Affect is appropriate and congruent with mood. Patient is oriented to time, place, person and situation. Maintains attention and concentration correctly. Instant recall, recent and remote memory are intact. Thought processes are coherent, logical and goal directed. Patient does not have auditory or visual hallucinations. Patient does not have paranoid delusions. Patient denies suicidal or homicidal ideation. Judgment and insight are fair. DISCHARGE DIAGNOSES: AXIS I: Major depressive disorder, alcohol dependency, substance-induced mood disorder. AXIS II: Deferred. AXIS III: Elevated liver function tests (LFTs), alcohol intoxication. INSTRUCTIONS TO THE PATIENT: Patient is to continue taking her medications as prescribed from followup appointments. She is advised to maintain absolute sobriety from drugs and alcohol. Patient has a scheduled appointment for psychotherapeutic medication management, individual psychotherapy and chemical dependency program as outpatient at [facility].
== END 2016-04-10 11:55 | disposition home or self-care (01) | DRG 881 ==
LOC: M ED 21:53 → M PSY 03-31 15:18
PROVIDERS: ADMIT Psychiatry & Neurology Psychiatry; ATTEND Psychiatry & Neurology Psychiatry
DX: F32.9 Major depressive disorder, single episode, unspecified (principal); F10.229 Alcohol dependence with intoxication, unspecified; F19.94 Other psychoactive substance use, unspecified with psychoactive substance-induced mood disorder; R74.0 Nonspecific elevation of levels of transaminase and lactic acid dehydrogenase [LDH]; K21.9 Gastro-esophageal reflux disease without esophagitis; E55.9 Vitamin D deficiency, unspecified; F17.200 Nicotine dependence, unspecified, uncomplicated; D50.9 Iron deficiency anemia, unspecified

== ENCOUNTER 2017-10-28 06:15 | Inpatient (IN) | payer MEDICARE, MEDICAID ==
[2017-10-28] MEDS: NICOTINE 21MG/24HR 1 EA TRANSDERMAL TD (09:00)
[2017-10-28] MEDS ORDERED: traZODone 50 MG TAB PO (12:15)
[2017-10-28] MEDS ORDERED: ACETAMINOPHEN TAB 650MG DOSE (2X325MG) PO (12:15)
[2017-10-28] MEDS ORDERED: MAALOX 30 ML SUSP *UDC PO (12:15)
[2017-10-28] MEDS ORDERED: MOM 30ML SUSPENSION UDC PO (12:15)
[2017-10-28] MEDS: DULoxetine 30 MG CAP (CYMBALTA) PO (17:14)
[2017-10-29] MEDS: NICOTINE 21MG/24HR 1 EA TRANSDERMAL TD (08:09)
[2017-10-29] MEDS: DULoxetine 30 MG CAP (CYMBALTA) PO (08:09)
[2017-10-29 12:51] LABS: ALBUMIN 3.6 GM/DL (3.2-5.2); ALKALINE PHOSPHATASE 85 U/L (45-117); ALT/SGPT 19 U/L (12-78); ANION GAP 6 MEQ/L (8-16); AST/SGOT 25 U/L (7-37); BILIRUBIN,TOTAL 0.6 MG/DL (0.2-1.0); BLOOD UREA NITROGEN 7 MG/DL (7-18); CALCIUM LEVEL 9.2 MG/DL (8.5-10.1); CARBON DIOXIDE LEVEL 29 MEQ/L (21-32); CHLORIDE LEVEL 103 MEQ/L (98-107); CREATININE FOR GFR 0.58 MG/DL (0.55-1.30); GLOMERULAR FILTRATION RATE > 60.0 (>51); GLUCOSE, FASTING 91 MG/DL (70-100); SODIUM LEVEL 138 MEQ/L (136-145); TOTAL PROTEIN 7.5 GM/DL (6.4-8.2)
[2017-10-29 16:56] LABS: ALBUMIN/GLOBULIN RATIO 0.92 (1.00-1.93)
[2017-10-29] MEDS: traZODone 50 MG TAB PO (21:13)
[2017-10-30] MEDS: NICOTINE 21MG/24HR 1 EA TRANSDERMAL TD (09:30)
[2017-10-30] MEDS: DULoxetine 30 MG CAP (CYMBALTA) PO (09:30)
[2017-10-30] MEDS: traZODone 50 MG TAB PO (21:15)
[2017-10-31] MEDS: NICOTINE 21MG/24HR 1 EA TRANSDERMAL TD (08:27)
[2017-10-31] MEDS: DULoxetine 30 MG CAP (CYMBALTA) PO (08:29)
[2017-11-01] MEDS: LORazepam 1 MG TAB PO (01:49)
[2017-11-01] MEDS: NICOTINE 21MG/24HR 1 EA TRANSDERMAL TD (08:08)
[2017-11-01] MEDS: DULoxetine 30 MG CAP (CYMBALTA) PO (08:08)
== END 2017-11-01 14:16 | disposition home or self-care (01) | DRG 885 ==
LOC: M ED 06:15 → M ED INP 12:14 → M PSY 13:35
DX: F33.9 Major depressive disorder, recurrent, unspecified (principal); F10.10 Alcohol abuse, uncomplicated; F44.89 Other dissociative and conversion disorders; K21.9 Gastro-esophageal reflux disease without esophagitis; F17.210 Nicotine dependence, cigarettes, uncomplicated; E87.6 Hypokalemia; D50.9 Iron deficiency anemia, unspecified; G47.00 Insomnia, unspecified; E55.9 Vitamin D deficiency, unspecified; Z98.84 Bariatric surgery status; Z90.49 Acquired absence of other specified parts of digestive tract; Z96.653 Presence of artificial knee joint, bilateral; Z79.899 Other long term (current) drug therapy

== ENCOUNTER 2017-11-05 12:46 | Inpatient (IN) | payer MEDICARE, MEDICAID ==
[2017-11-05 14:01] LABS: HEMOGLOBIN 13.6 g/dl (12.0-15.5); MEAN CORPUSCULAR HEMOGLOBIN 30.7 pg (27.0-33.0); MEAN CORPUSCULAR HGB CONC 32.4 g/dl (32.0-36.5); MEAN CORPUSCULAR VOLUME 94.8 fl (80.0-96.0); PLATELET COUNT, AUTOMATED 245 10^3/uL (150-450); RED BLOOD COUNT 4.43 10^6/uL (4.00-5.40); WHITE BLOOD COUNT 6.2 10^3/uL (4.0-10.0)
[2017-11-05 14:42] LABS: ALBUMIN/GLOBULIN RATIO 1.05 (1.00-1.93); ALKALINE PHOSPHATASE 87 U/L (45-117); ALT/SGPT 20 U/L (12-78); ANION GAP 9 MEQ/L (8-16); AST/SGOT 18 U/L (7-37); BILIRUBIN,DIRECT 0.1 MG/DL (0.0-0.2); BILIRUBIN,TOTAL 0.5 MG/DL (0.2-1.0); BLOOD UREA NITROGEN 12 MG/DL (7-18); CALCIUM LEVEL 9.2 MG/DL (8.5-10.1); CARBON DIOXIDE LEVEL 29 MEQ/L (21-32); CHLORIDE LEVEL 102 MEQ/L (98-107); CREATININE FOR GFR 0.66 MG/DL (0.55-1.30); GLOMERULAR FILTRATION RATE > 60.0 (>51); GLUCOSE, FASTING 83 MG/DL (70-100); POTASSIUM SERUM 3.7 MEQ/L (3.5-5.1); SALICYLATE LEVEL 3.2 MG/DL (5.0-30.0); SODIUM LEVEL 140 MEQ/L (136-145); TOTAL PROTEIN 7.8 GM/DL (6.4-8.2)
[2017-11-05 14:43] LABS: ACETAMINOPHEN LEVEL < 2.0 UG/ML (10.0-30.0); ETHYL ALCOHOL (ETHANOL) < 0.003 % (0.000-0.010)
[2017-11-05] MEDS: LORazepam 1 MG TAB PO (15:46)
[2017-11-05] MEDS: BENZTROPINE 1 MG TAB PO (15:46)
[2017-11-05] MEDS: HALOPERIDOL 5 MG TAB PO (15:46)
[2017-11-05] MEDS ORDERED: MAALOX 30 ML SUSP *UDC PO (18:45)
[2017-11-05] MEDS ORDERED: MOM 30ML SUSPENSION UDC PO (18:45)
[2017-11-05] MEDS ORDERED: ACETAMINOPHEN TAB 650MG DOSE (2X325MG) PO (18:45)
[2017-11-06] MEDS: NICOTINE 21MG/24HR 1 EA TRANSDERMAL TD (08:32)
[2017-11-06] MEDS: traZODone 50 MG TAB PO (21:32)
[2017-11-07] MEDS: DULoxetine 30 MG CAP (CYMBALTA) PO (08:03)
[2017-11-07] MEDS: NICOTINE 21MG/24HR 1 EA TRANSDERMAL TD (08:03)
[2017-11-07] MEDS: traZODone 50 MG TAB PO (21:35)
[2017-11-08] MEDS: NICOTINE 21MG/24HR 1 EA TRANSDERMAL TD (08:22)
[2017-11-08] MEDS: DULoxetine 30 MG CAP (CYMBALTA) PO (08:22)
[2017-11-08] MEDS: traZODone 50 MG TAB PO (21:53)
[2017-11-09] MEDS: DULoxetine 30 MG CAP (CYMBALTA) PO (08:34)
[2017-11-09] MEDS: NICOTINE 21MG/24HR 1 EA TRANSDERMAL TD (08:34)
[2017-11-09] MEDS: traZODone 50 MG TAB PO (23:24)
[2017-11-10] MEDS: NICOTINE 21MG/24HR 1 EA TRANSDERMAL TD (09:00)
[2017-11-10] MEDS: DULoxetine 30 MG CAP (CYMBALTA) PO (09:02)
[2017-11-10] MEDS: traZODone 50 MG TAB PO (22:33)
[2017-11-11] MEDS: NICOTINE 21MG/24HR 1 EA TRANSDERMAL TD (08:21)
[2017-11-11] MEDS: DULoxetine 30 MG CAP (CYMBALTA) PO (08:22)
[2017-11-11] MEDS: OLANZapine ORAL DISINTEGRATING TAB 5MG PO (08:22)
[2017-11-11] MEDS: traZODone 50 MG TAB PO (22:46)
[2017-11-12] MEDS: DULoxetine 30 MG CAP (CYMBALTA) PO (08:06)
[2017-11-12] MEDS: NICOTINE 21MG/24HR 1 EA TRANSDERMAL TD (08:07)
[2017-11-12] MEDS: GABAPENTIN 100 MG CAP PO (11:18)
== END 2017-11-12 14:55 | disposition home or self-care (01) | DRG 885 ==
LOC: M ED 12:46 → M ED INP 18:45 → M PSY 19:58
DX: F32.3 Major depressive disorder, single episode, severe with psychotic features (principal); G95.0 Syringomyelia and syringobulbia; F10.14 Alcohol abuse with alcohol-induced mood disorder; Z79.899 Other long term (current) drug therapy; K21.9 Gastro-esophageal reflux disease without esophagitis; K25.9 Gastric ulcer, unspecified as acute or chronic, without hemorrhage or perforation; D50.9 Iron deficiency anemia, unspecified; F41.9 Anxiety disorder, unspecified; G47.00 Insomnia, unspecified; E55.9 Vitamin D deficiency, unspecified; Z98.84 Bariatric surgery status; Z90.49 Acquired absence of other specified parts of digestive tract; Z96.653 Presence of artificial knee joint, bilateral; F17.210 Nicotine dependence, cigarettes, uncomplicated

== ENCOUNTER → 2018-07-18 | Outpatient (REF) | payer MEDICARE, MEDICAID ==
[~2018-07-18] MED LIST changes: -COLA100C PO; +COLA100C5 PO; +DRIS50003 PO; +DULO1CAP3 PO; +DULO30CA9 PO; +FERR1TAB8 PO; +GABA-1171 PO; +HYDR-3363 PO; -HYDR25T PO; +HYDR50TA70 PO; +NALT50TA4 PO; +NICO21DI31 TD; +NICO21PAT TD; +OMEP20CA3 PO; +SUCR1SS PO; +SUCR1SUS PO; -THIA100T PO; +THIA100T7 PO; +TRAZ1TAB10 PO; +TRAZ1TAB14 PO; +TYLE1TAB5 PO; +VITMTA PO; +ZOLO100T PO
[2018-07-24 14:51] LABS: HPV HYBRID CAPTURE II Negative (Negative)
== END ==
LOC: M LAB LCGH 12:22
PROVIDERS: ATTEND Physician Assistant
DX: R87.610 Atypical squamous cells of undetermined significance on cytologic smear of cervix (ASC-US) (principal)
CPT/HCPCS: 87624; G0123

== ENCOUNTER 2024-11-04 09:52 | Inpatient (IN) | payer MEDICARE, MEDICAID ==
[~2024-11-04] VITALS: Ht 152.4 cm; Wt 70.0 kg
[~2024-11-04 09:52] MED LIST changes: +CYMB60CA4 PO; -DULO1CAP3 PO; +DULO1CAP6 PO; +NICO1DIS12 TD; -NICO21DI31 TD; +OMEP1CAP73 PO; -OMEP20CA3 PO; +OMEP40CA4 PO; +SUCR1ORA PO; -SUCR1SUS PO
[2024-11-04 10:44] LABS: PLATELET COUNT, AUTOMATED 327 10^3/uL (150-450)
[2024-11-04 11:07] LABS: AMPHETAMINES LEVEL URINE NEGATIVE (NEGATIVE); BARBITURATES URINE NEGATIVE (NEGATIVE); BENZODIAZEPINES URINE NEGATIVE (NEGATIVE); CANNABINOIDS URINE NEGATIVE (NEGATIVE); COCAINE METABOLITE URINE NEGATIVE (NEGATIVE); METHADONE URINE NEGATIVE (NEGATIVE); OPIATES URINE NEGATIVE (NEGATIVE); PHENCYCLIDINE URINE NEGATIVE (NEGATIVE)
[2024-11-04 11:09] LABS: ALT/SGPT 30 U/L (7.0-40); AST/SGOT 35 U/L (<34); CALCIUM LEVEL 9.6 MG/DL (8.3-10.6); CARBON DIOXIDE LEVEL 27 MMOL/L (20-31); CHLORIDE LEVEL 108 MMOL/L (98-107); CREATININE FOR GFR 0.67 MG/DL (0.55-1.30); GLOMERULAR FILTRATION RATE > 90.0 (>45); POTASSIUM SERUM 3.4 MMOL/L (3.5-5.1); SALICYLATE LEVEL < 3.0 MG/DL (<30); SODIUM LEVEL 144 MMOL/L (136-145)
[2024-11-04 11:11] LABS: ETHYL ALCOHOL (ETHANOL) < 0.003 % (0.000-0.010)
[2024-11-04] MEDS ORDERED: ATOR80TA59 PO (13:28)
[2024-11-04] MEDS ORDERED: HOME MED LIST COMPLETE! XX SCH (13:30)
[2024-11-04] MEDS ORDERED: MAALOX 30 ML SUSP *UDC PO PRN (14:05)
[2024-11-04] MEDS ORDERED: HALOPERIDOL 5 MG TAB PO PRN (14:05)
[2024-11-04] MEDS ORDERED: MOM 30 ML SUSPENSION UDC PO PRN (14:05)
[2024-11-04] MEDS ORDERED: OLANZapine 5 MG TAB PO PRN (14:05)
[2024-11-04] MEDS ORDERED: ACETAMINOPHEN 325 MG TAB PO PRN (14:05)
[2024-11-04] MEDS ORDERED: IBUPROFEN 400 MG TAB PO PRN (14:05)
[2024-11-04] MEDS: NICOTINE 14 MG/24 HR TRANSDERMAL TD SCH (17:00)
[2024-11-04 21:51] VITALS: BP 145/80; TEMP 97.1; O2SAT 100
[2024-11-05] MEDS: traZODone 50 MG TAB PO PRN (01:17)
[2024-11-05 06:45] VITALS: BP 135/65; TEMP 97.8; O2SAT 97
[2024-11-05] MEDS: ATORVASTATIN 20 MG TAB PO SCH (09:14)
[2024-11-05] MEDS: FLUZONE VACCINE TRIVALENT PF(25-26) 0.5ML SYRINGE IM.IMMUN ONE (09:48)
[2024-11-05] MEDS: DIVALPROEX SPRINKLE 125 MG CAP PO SCH (15:19)
[2024-11-05 16:25] VITALS: BP 137/95; TEMP 97.3; O2SAT 95
[2024-11-05] MEDS: OLANZapine 5 MG TAB PO SCH (20:05)
[2024-11-06 06:23] VITALS: BP 136/71; TEMP 97.1; O2SAT 100
[2024-11-06 15:37] VITALS: BP 118/62; TEMP 97.9; O2SAT 99
[2024-11-07 06:41] VITALS: BP 125/78; TEMP 96.3; O2SAT 100
[2024-11-07 15:48] VITALS: BP 122/71; TEMP 98.1; O2SAT 98
[2024-11-08 06:36] VITALS: BP 139/80; TEMP 97.3; O2SAT 97
[2024-11-08 15:52] VITALS: BP 136/79; TEMP 98; O2SAT 94
[2024-11-08] MEDS: OLANZapine 10 MG TAB PO SCH (20:42)
[2024-11-08] MEDS: LORazepam 1 MG TAB PO PRN (20:42)
[2024-11-09 15:08] VITALS: BP 107/57; TEMP 97; O2SAT 98
[2024-11-10 06:33] VITALS: BP 137/67; TEMP 96.8; O2SAT 98
[2024-11-10] MEDS ORDERED: OLAN1TAB20 PO (08:37)
[2024-11-10] MEDS ORDERED: DULO1CAP5 PO (08:37)
[2024-11-10] MEDS ORDERED: DIVA125C6 PO (08:37)
== END 2024-11-10 12:00 | disposition home or self-care (01) | DRG 885 ==
LOC: M ED 11:18 → M ED INP 14:01 → M PSY 20:58
PROVIDERS: ADMIT Internal Medicine; ATTEND Internal Medicine
DX: F31.63 Bipolar disorder, current episode mixed, severe, without psychotic features (principal); F41.1 Generalized anxiety disorder; F41.0 Panic disorder [episodic paroxysmal anxiety]; F10.10 Alcohol abuse, uncomplicated; D50.9 Iron deficiency anemia, unspecified; K21.9 Gastro-esophageal reflux disease without esophagitis; K25.9 Gastric ulcer, unspecified as acute or chronic, without hemorrhage or perforation; E11.9 Type 2 diabetes mellitus without complications; Z96.653 Presence of artificial knee joint, bilateral; Z98.84 Bariatric surgery status; Z90.49 Acquired absence of other specified parts of digestive tract; Z90.79 Acquired absence of other genital organ(s); Z56.0 Unemployment, unspecified; Z79.899 Other long term (current) drug therapy